=== PATIENT | female | born 1945 | race Caucasian/White ===

== ENCOUNTER 2016-12-10 18:27 | Observation (INO) | payer MEDICARE, OTHER ==
[2016-12-10] MEDS ORDERED: Sodium Chloride 0.9% 1,000 ML IV ONE (18:43)
[2016-12-10] MEDS ORDERED: Sodium Chloride 0.9% 10 ML Syringe FLUSH PRN (18:43)
[2016-12-10] MEDS ORDERED: methylPREDNISolone Sodium Succinate 125 MG/2 ML SDV IVPUSH ONE (19:50)
--- NOTE | 2016-12-10 20:15 | EDM.PDOC ---
ED HPI GENERAL MEDICAL PROBLEM - General Chief Complaint: Back Pain or Injury Stated Complaint: whole body spasms Time Seen by Provider: 12/10/16 18:40 Source of Information: Reports: Patient, Family History Limitations: Reports: No Limitations - History of Present Illness INITIAL COMMENTS - FREE TEXT/NARRATIVE: Patient presents with complaints of spasms to her back. She has chronic back problems and has had 9 total surgeries. She states that she does have this happen periodically. Pain and spasms started this morning. Rates pain an 8-9/ 10. States the pain is like a squeezing on her entire body. Medical history includes HTN, stage 3 CKD, hyperlipidemia, hypercholesterolemia, polymyalgia rheumatica, RA, osteopenia. History of bilateral knee replacements, total hysterectomy. Denies chest pain, SOB, does endorse some constipation, no blood in urine or stools. No smoking, drinking, or illegal drug use. Onset: Today, Sudden Duration: Chronic, Getting Worse Location: Reports: Generalized Severity: Moderate Worsens with: Reports: Movement Associated Symptoms: Reports: No Other Symptoms Generalized Pain Score (Numeric/FACES): 9 - Related Data Allergies Allergy/AdvReac Type Severity Reaction Status Date / Time No Known Drug Allergies Allergy Other Verified 12/10/16 18:42 atorvastatin calcium AdvReac Muscle Verified 12/10/16 18:42 [From Lipitor] Aches pregabalin [From Lyrica] AdvReac Diaphoresis Verified 12/10/16 18:42 Home Meds: Home Meds Aspirin [Halfprin] 81 mg PO DAILY 09/11/13 [History] Calcium Carb & Citrate/Vit D3 [Calcium + D3 ER Tablet] 1 each PO BID 09/11/13 [ History] DULoxetine [Cymbalta] 90 mg PO DAILY 09/11/13 [History] Multivitamin [Multi-Vitamin Daily] 1 each PO DAILY 09/11/13 [History] Oxybutynin Chloride [Ditropan Xl] 5 mg PO WITHLUNCH 09/11/13 [History] Ubidecarenone [Co Q-10] 50 mg PO TID 09/11/13 [History] Vitamin E 400 unit PO DAILY 09/11/13 [History] Zolpidem [Ambien] 5 mg PO BEDTIME PRN 05/29/14 [History] fentaNYL [Fentanyl] 75 mcg TD Q48H 05/29/14 [History] Metoprolol Succinate [Toprol XL] 25 mg PO DAILY #30 tab.er 06/16/14 [Rx] Cholecalciferol (Vitamin D3) [Vitamin D3] 400 units PO BID 01/14/15 [History] Furosemide 20 mg PO DAILY PRN 01/14/15 [History] Hydrocodone/Acetaminophen [Hydrocodon-Acetaminophn 10-325] 1 tab PO Q4H PRN 10/21 [History] Hydroxychloroquine Sulfate [Plaquenil] 200 mg PO BID 01/14/15 [History] predniSONE [Shakila] 4 mg PO DAILY 01/14/15 [History] Docusate Sodium [Colace] 100 mg PO BID 01/18/15 [History] LORazepam [Ativan] 1 mg PO Q2H PRN 01/18/15 [History] Gabapentin [Neurontin] 100 mg PO DAILY@1200 cap 01/25/15 [Rx] Gabapentin [Neurontin] 200 mg PO BID cap 01/25/15 [Rx] Past Medical History Genitourinary History: Reports: Renal Disease Other Genitourinary History: stage 3 kidney disease Musculoskeletal History: Reports: Arthritis, Back Pain, Chronic - Past Surgical History Female Surgical History: Reports: Hysterectomy Other Musculoskeletal Surgeries/Procedures:: back/neck surgeries Social & Family History - Tobacco Use Smoking Status *Q: Former Smoker Years of Tobacco use: 10 Used Tobacco, but Quit: Yes Month Tobacco Last Used: unknown Second Hand Smoke Exposure: No - Alcohol Use Days Per Week of Alcohol Use: 0 - Recreational Drug Use Recreational Drug Use: No ED ROS GENERAL - Review of Systems Review Of Systems: See Below Constitutional: Reports: No Symptoms HEENT: Reports: No Symptoms Respiratory: Reports: No Symptoms Cardiovascular: Reports: No Symptoms Endocrine: Reports: No Symptoms GI/Abdominal: Reports: No Symptoms : Reports: No Symptoms Musculoskeletal: Reports: Muscle Pain (generalized spasms) Skin: Reports: No Symptoms Neurological: Reports: No Symptoms Psychiatric: Reports: No Symptoms Hematologic/Lymphatic: Reports: No Symptoms Immunologic: Reports: No Symptoms ED EXAM,LOWER BACK PAIN/INJURY - Physical Exam Exam: See Below Exam Limited By: No Limitations General Appearance: Alert, WD/WN, Mild Distress Eye Exam: Bilateral Eye: EOMI, PERRL Throat/Mouth: Normal Inspection Head: Atraumatic, Normocephalic Neck: Normal Inspection Respiratory/Chest: No Respiratory Distress, Lungs Clear, Normal Breath Sounds, No Accessory Muscle Use, Chest Non-Tender Cardiovascular: Normal Peripheral Pulses, Regular Rate, Rhythm, No Murmur GI/Abdominal: Normal Bowel Sounds, Soft, Non-Tender Back Exam: Decreased Range of Motion, Muscle Spasm Extremities: Normal Inspection, Non-Tender, Normal Capillary Refill, Pedal Edema , Limited Range of Motion Neurological: Alert, Normal Mood/Affect, Normal Dorsiflexion, CN II-XII Intact, Normal Plantar Flexion, Normal Gait, Normal Reflexes, No Motor/Sensory Deficits , Oriented x 3 Psychiatric: Normal Affect, Normal Mood Skin Exam: Warm, Dry, Intact Lymphatic: No Adenopathy Course - Vital Signs Last Recorded V/S: Last Vital Signs Temp 36.0 C 12/10/16 18:27 Pulse 68 12/10/16 18:27 Resp 20 12/10/16 18:27 BP 137/65 12/10/16 18:27 Pulse Ox - Orders/Labs/Meds Orders: Active Orders 24 hr Category Date Time Status Lumbar Spine wo Cont [CT] Stat Exams 12/10/16 18:41 Ordered CULTURE URINE [RM] Stat Lab 12/10/16 19:38 Uncollected Sodium Chloride 0.9% [Saline Flush] Med 12/10/16 18:43 Ordered 10 ml FLUSH ASDIRECTED PRN Saline Lock Insert [OM.PC] Routine Oth 12/10/16 18:43 Ordered Medication Orders Sodium Chloride (Saline Flush) 10 ml FLUSH ASDIRECTED PRN PRN Reason: Keep Vein Open Labs: Laboratory Tests 12/10/16 12/10/16 12/10/16 Range/Units 18:56 18:56 19:29 WBC 7.0 (4.0-10.0) x10^3/uL RBC 3.40 L (4.00-5.50) x10^6/uL Hgb 10.6 L (12.0-16.0) g/dL Hct 32.3 L (33.0-47.0) % MCV 95.0 H D (78.0-93.0) fL MCH 31.2 (26.0-32.0) pg MCHC 32.8 (32.0-36.0) g/dL RDW Coeff of Isaura 13.6 (10.0-15.0) % Plt Count 155 (130-400) x10^3/uL Neut % (Auto) 64.7 (50.0-80.0) % Lymph % (Auto) 22.2 L (25.0-50.0) % Leake % (Auto) 11.0 (2.0-11.0) % Eos % (Auto) 1.8 (0.0-4.0) % Baso % (Auto) 0.3 (0.2-1.2) % Sodium 141 (136-145) mmol/L Potassium 4.2 (3.5-5.1) mmol/L Chloride 103 (98-107) mmol/L Carbon Dioxide 25 (21-32) mmol/L BUN 41 H (7-18) mg/dL Creatinine 2.3 H (0.55-1.02) mg/dL Est Cr Clr Drug Dosing 19.93 mL/min Estimated GFR (MDRD) 21 Glucose 94 (74-106) mg/dL Calcium 8.9 (8.5-10.1) mg/dL Corrected Calcium 9.22 (8.5-10.1) mg/dL Magnesium 2.2 (1.8-2.4) mg/dL Total Bilirubin 0.4 (0.2-1.0) mg/dL AST 25 (15-37) U/L ALT 32 (14-59) U/L Alkaline Phosphatase 71 (46-116) U/L NT-Pro-B Natriuret Pep 225 H (<=125) pg/mL Total Protein 7.7 (6.4-8.2) g/dL Albumin 3.6 (3.4-5.0) g/dL Globulin 4.1 Albumin/Globulin Ratio 0.88 Urine Color Yellow (YELLOW) Urine Appearance Turbid H (CLEAR) Urine pH 5.5 (5.0-8.0) Ur Specific [place] 1.020 Urine Protein 30 H (NEGATIVE) mg/dL Urine Glucose (UA) Negative (NEGATIVE) mg/dL Urine Ketones Negative (NEGATIVE) mg/dL Urine Occult Blood Trace-intact H (NEGATIVE) Urine Nitrite Positive H (NEGATIVE) Urine Bilirubin Negative (NEGATIVE) Urine Urobilinogen 0.2 (0.2) EU/dL Ur Leukocyte Esterase Moderate H (NEGATIVE) Urine RBC 0-5 (NOT SEEN) /HPF Urine WBC >100 H (NOT SEEN) /HPF Ur Squamous Epith Cells Moderate H (NEGATIVE) /HPF Ur Renal Epithelial Cell Rare H (NEGATIVE) /HPF Urine Bacteria Many H (NEGATIVE) /HPF WBC Casts Rare H (NEGATIVE) /HPF Urine Mucus Rare H (NEGATIVE) /LPF Meds: Medications Generic Name Dose Route Start Last Admin Trade Name Hemalatha PRN Reason Stop Dose Admin Sodium Chloride 10 ml 12/10/16 18:43 Saline Flush FLUSH ASDIRECTED PRN Keep Vein Open Discontinued Medications Generic Name Dose Route Start Last Admin Trade Name Hemalatha PRN Reason Stop Dose Admin Diazepam 5 mg 12/10/16 18:43 12/10/16 19:38 Valium IVPUSH 12/10/16 18:44 5 mg ONETIME ONE Administration Sodium Chloride 1,000 mls @ 999 mls/hr 12/10/16 18:43 12/10/16 19:34 Normal Saline IV 12/10/16 19:43 999 mls/hr ONETIME ONE Administration - Re-Assessments/Exams Free Text/Narrative Re-Assessment/Exam: 12/10/16 21:28 examination of labs and diagnostics does show a loosening of her hardware in the back, urine sample is positive for blood, nitrates, leukocytes, mucous, wbc' s Departure - Departure Time of Disposition: 20:35 Disposition: Refer to Observation Condition: Good Clinical Impression: Pyelonephritis, Chronic back pain - Discharge Information - My Orders Last 24 Hours: My Active Orders 12/10/16 18:41 Lumbar Spine wo Cont [CT] Stat 12/10/16 18:43 Sodium Chloride 0.9% [Saline Flush] 10 ml FLUSH ASDIRECTED PRN Saline Lock Insert [OM.PC] Routine 12/10/16 19:38 CULTURE URINE [RM] Stat - Assessment/Plan Last 24 Hours: My Active Orders 12/10/16 18:41 Lumbar Spine wo Cont [CT] Stat 12/10/16 18:43 Sodium Chloride 0.9% [Saline Flush] 10 ml FLUSH ASDIRECTED PRN Saline Lock Insert [OM.PC] Routine 12/10/16 19:38 CULTURE URINE [RM] Stat
[2016-12-10] MEDS ORDERED: oxyCODONE 5 MG Tab PO PRN (21:35)
[2016-12-10] MEDS ORDERED: Magnesium Hydroxide 400 MG/5 ML Susp 30 ML Cup PO PRN (21:35)
[2016-12-10] MEDS ORDERED: Acetaminophen 325 MG Tab PO PRN (21:35)
[2016-12-10] MEDS ORDERED: Polyethylene Glycol 3350 Powder 17 GM Packet PO PRN (21:35)
[2016-12-10] MEDS ORDERED: Morphine 2 MG/ML Syringe IVPUSH PRN (21:35)
[2016-12-10] MEDS: Sodium Chloride 0.9% 1,000 ML IV SCH (22:00)
[2016-12-10] MEDS ORDERED: Baclofen 10 MG Tab PO SCH (22:00)
[2016-12-10] MEDS ORDERED: cefTRIAXone 1 GM Vial IVPUSH SCH (22:00)
[2016-12-10] MEDS ORDERED: Furosemide 20 MG Tab PO PRN (22:27)
[2016-12-10] MEDS ORDERED: Non-Formulary Medication 1 Each (Nystatin [Nystatin] 1 EACH) TOP PRN (22:27)
[2016-12-10] MEDS ORDERED: Acetaminophen/HYDROcodone 325-10 MG Tab PO PRN (22:27)
[2016-12-10] MEDS ORDERED: Non-Formulary Medication 1 Each (Ubidecarenone [Co Q-10] 50 MG) PO SCH (22:30)
[2016-12-10] MEDS ORDERED: Miconazole 2% Top Powder 45 GM Container TOP PRN (22:59)
[2016-12-11] MEDS: Diazepam 5 MG Tab PO SCH ×2 (07:56→11:33)
[2016-12-11] MEDS ORDERED: DULoxetine 60 MG Cap PO SCH (08:00)
[2016-12-11] MEDS ORDERED: Gabapentin 100 MG Cap PO SCH ×3 (08:00→20:00)
[2016-12-11] MEDS ORDERED: Multivitamins with Iron/Calcium/Folic Acid/Minerals Tab PO SCH (08:00)
[2016-12-11] MEDS ORDERED: methylPREDNISolone Sodium Succinate 125 MG/2 ML SDV IVPUSH SCH (08:00)
[2016-12-11] MEDS ORDERED: DULoxetine 30 MG Cap PO SCH (08:00)
[2016-12-11] MEDS ORDERED: fentaNYL 75 MCG/HR Transdermal Patch TRDERM SCH ×2 (08:00→12:00)
[2016-12-11] MEDS ORDERED: Aspirin 81 MG Tab.EC PO SCH (08:00)
[2016-12-11] MEDS ORDERED: Metoprolol Succinate 25 MG Tab.ER PO SCH (08:00)
[2016-12-11] MEDS ORDERED: Hydroxychloroquine 200 MG Tab PO SCH (08:00)
[2016-12-11] MEDS ORDERED: Cholecalciferol (Vitamin D3) 400 Unit Tab PO SCH (08:00)
[2016-12-11] MEDS ORDERED: Vitamin E (dl-alpha-tocopherol acetate) 400 Unit Cap PO SCH (08:00)
[2016-12-11] MEDS ORDERED: Baclofen 10 MG Tab PO SCH ×3 (08:00→20:00)
[2016-12-11] MEDS: Sodium Chloride 0.9% 1,000 ML IV SCH (08:00)
[2016-12-11] MEDS ORDERED: FLU Vacc TS 2017-18 (65yr UP)/PF 180 MCG/0.5 ML Syringe IM ONE (08:15)
[2016-12-11] MEDS ORDERED: Enoxaparin 30 MG/0.3 ML Syringe SUBCUT SCH (12:00)
[2016-12-11] MEDS ORDERED: Oxybutynin 5 MG Tab.ER PO SCH (12:00)
[2016-12-11] MEDS ORDERED: Calcium Carbonate/Vitamin D3 1250 MG-200 Unit Tab PO SCH (12:00)
--- NOTE | 2016-12-11 12:03 | PCM.DCSUM1 ---
Discharge Summary - Hospital Course HPI Initial Comments: Patient came in last night with severe spasms generalized throughout her body. She has a long-standing history of chronic back problems she's had multiple surgeries. She states she's had a total of 9 back surgeries. She also states that recent CT evaluations showed that some of the hardware was loosening within the back but they were unable or unwilling to do any repairs because she' s got severe demineralization to the spine. Upon my seeing her in the emergency room I did give her IV pain medications, IV corticosteroid, and did do a CT of her back. I also did give her a 5 mg dose of IV Valium which was very effective in eliminating her spasms as well as the pain. Prior to the Valium being administered she rated her pain 8-9 out of 10, she was admitted last night for pain control. after the Valium was administered she rated her pain at a 2. I did admit her last night for IV pain control and for IV antibiotic treatment for pyelonephritis. - Discharge Data Discharge Date: 12/11/16 Discharge Disposition: Home, Self-Care 01 Condition: Good - Discharge Diagnosis/Problem(s) (1) Spasm of back muscles SNOMED Code(s): 166825884 ICD Code: M62.830 - MUSCLE SPASM OF BACK Status: Acute Priority: Medium Current Visit: Yes - Patient Summary/Data Consults: Consultations 12/10/16 21:35 OT Evaluation and Treatment [CONS] Routine PT Evaluation and Treatment [CONS] Routine - Patient Instructions Diet: Usual Diet as Tolerated Notify Provider of: Fever, Increased Pain, Nausea and/or Vomiting Other/Special Instructions: Please follow-up with your primary care provider. A urine culture has been obtained we will call you with any changes that may need to be made in your antibiotic regimen. I recommend that you take the Valium once daily as needed only for any muscle spasms that you may suffer. You need to stay well-hydrated, and you do need to move his much as you're able to tolerate. This will help reduce the amount of back stiffening and back spasms that you do have. Sitting or laying down for long periods of time will only serve to stiffen and tightened the muscles of your back. - Discharge Plan Home Medications: Home Meds Aspirin [Halfprin] 81 mg PO DAILY 09/11/13 [History] Calcium Carb & Citrate/Vit D3 [Calcium + D3 ER Tablet] 1 each PO BID 09/11/13 [ History] DULoxetine [Cymbalta] 1 tab PO DAILY 09/11/13 [History] Multivitamin [Multi-Vitamin Daily] 1 each PO DAILY 09/11/13 [History] Oxybutynin Chloride [Ditropan Xl] 5 mg PO WITHLUNCH 09/11/13 [History] Ubidecarenone [Co Q-10] 50 mg PO ASDIRECTED 09/11/13 [History] Vitamin E 400 unit PO DAILY 09/11/13 [History] fentaNYL [Fentanyl] 75 mcg TD Q48H 05/29/14 [History] Metoprolol Succinate [Toprol XL] 25 mg PO DAILY #30 tab.er 06/16/14 [Rx] Cholecalciferol (Vitamin D3) [Vitamin D3] 400 units PO BID 01/14/15 [History] Furosemide 20 mg PO DAILY PRN 01/14/15 [History] Hydrocodone/Acetaminophen [Hydrocodon-Acetaminophn 10-325] 1 tab PO Q4H PRN 10/21 [History] Hydroxychloroquine Sulfate [Plaquenil] 200 mg PO BID 01/14/15 [History] predniSONE [Shakila] 4 mg PO DAILY 01/14/15 [History] Gabapentin [Neurontin] 100 mg PO DAILY@1200 cap 01/25/15 [Rx] Acetaminophen 1 - 2 tab PO Q3H PRN 12/10/16 [History] Alendronate Sodium [Fosamax] 70 mg PO WEEKLY 12/10/16 [History] Baclofen [Baclofen] 1 tab PO ASDIRECTED 12/10/16 [History] Baclofen [Baclofen] 1 tab PO WITHBREAKFAST 12/10/16 [History] Baclofen [Baclofen] 1.5 tab PO BEDTIME 12/10/16 [History] DULoxetine HCl [Duloxetine HCl] 1 tab PO DAILY 12/10/16 [History] Gabapentin [Neurontin] 200 mg PO BEDTIME 12/10/16 [History] Gabapentin [Neurontin] 200 mg PO QAM 12/10/16 [History] Nystatin 1 each TOP BID PRN 12/10/16 [History] Forms: ED Department Discharge Referrals: Crystal Parks MD [Primary Care Provider] - - General Info Date of Service: 12/11/16 Admission Dx/Problem (Free Text: pyelonephritis acute back spasms pain management Functional Status: Reports: Pain Controlled, Tolerating Diet, Ambulating, Urinating, Other (having BM's, constipation resolved) - Review of Systems General: Reports: No Symptoms HEENT: Reports: No Symptoms Pulmonary: Reports: No Symptoms Cardiovascular: Reports: No Symptoms Gastrointestinal: Reports: No Symptoms Genitourinary: Reports: No Symptoms Musculoskeletal: Reports: Neck Pain, Back Pain Skin: Reports: No Symptoms Neurological: Reports: No Symptoms Psychiatric: Reports: No Symptoms - Patient Data Vitals - Most Recent: Last Vital Signs Temp 36.6 C 12/11/16 10:00 Pulse 65 12/11/16 10:00 Resp 20 12/11/16 10:00 BP 124/56 L 12/11/16 10:00 Pulse Ox 95 12/11/16 10:00 Weight - Most Recent: 218.8 kg I&O - Last 24 hours: Intake & Output 12/10/16 12/11/16 12/11/16 22:59 06:59 14:59 Intake Total 480 688 320 Output Total 150 300 Balance 480 538 20 Med Orders - Current: Current Medications Acetaminophen (Tylenol) 650 mg PO Q4H PRN PRN Reason: Pain (Mild 1-3)/fever Last Admin: 12/11/16 05:02 Dose: 650 mg Hydrocodone Bitart/Acetaminophen ([place] 325-10 Mg) 1 tab PO Q4H PRN PRN Reason: Pain (moderate 4-6) Aspirin (Halfprin) 81 mg PO DAILY [facility] Last Admin: 12/11/16 07:55 Dose: 81 mg Baclofen (Lioresal) 10 mg PO WITHBREAKFAST [facility] Last Admin: 12/11/16 07:56 Dose: 10 mg Baclofen (Lioresal) 15 mg PO BEDTIME CARLA Baclofen (Lioresal) 10 mg PO 12 [facility] Last Admin: 12/11/16 11:47 Dose: 10 mg Calcium Carbonate (Calcium Carbonate/Vitamin D 1250 Mg-200 Unit) 1 tab PO BID@ 1200,2100 [facility] Last Admin: 12/11/16 11:33 Dose: 1 tab Ceftriaxone Sodium (Rocephin) 1 gm IVPUSH DAILY@2200 [facility] Last Admin: 12/10/16 22:35 Dose: 1 gm Cholecalciferol (Vitamin D3) 400 units PO BID [facility] Last Admin: 12/11/16 07:55 Dose: 400 units Diazepam (Valium.) 5 mg PO TID [facility] Last Admin: 12/11/16 11:33 Dose: 5 mg Duloxetine HCl (Cymbalta) 30 mg PO DAILY [facility] Last Admin: 12/11/16 07:55 Dose: 30 mg Duloxetine HCl (Cymbalta) 60 mg PO DAILY [facility] Last Admin: 12/11/16 07:56 Dose: 60 mg Enoxaparin Sodium (Lovenox) 30 mg SUBCUT DAILY@1200 [facility] Last Admin: 12/11/16 11:32 Dose: 30 mg Fentanyl (Duragesic) 75 mcg TRDERM Q48H [facility] Last Admin: 12/11/16 11:30 Dose: 75 mcg Furosemide (Lasix) 20 mg PO DAILY PRN PRN Reason: Edema Gabapentin (Neurontin) 100 mg PO DAILY@1200 [facility] Last Admin: 12/11/16 11:33 Dose: 100 mg Gabapentin (Neurontin) 200 mg PO QAM [facility] Last Admin: 12/11/16 07:57 Dose: 200 mg Gabapentin (Neurontin) 200 mg PO BEDTIME [facility] Hydroxychloroquine Sulfate (Plaquenil) 200 mg PO BIDMEALS@0800,1700 [facility] Last Admin: 12/11/16 07:55 Dose: 200 mg Sodium Chloride (Normal Saline) 1,000 mls @ 100 mls/hr IV ASDIRECTED [facility] Last Admin: 12/11/16 08:00 Dose: 100 mls/hr Magnesium Hydroxide (Milk Of Magnesia) 30 ml PO Q12H PRN PRN Reason: Constipation Methylprednisolone Sodium Succinate (Solu-Medrol) 125 mg IVPUSH Q12H [facility] Last Admin: 12/11/16 07:55 Dose: 125 mg Metoprolol Succinate (Toprol Xl) 25 mg PO DAILY [facility] Last Admin: 12/11/16 07:56 Dose: 25 mg Miconazole (Desenex 2%) 0 gm TOP BID PRN PRN Reason: SKIN Morphine Sulfate (Morphine) 2 mg IVPUSH Q2H PRN PRN Reason: Pain (severe 7-10) Multivitamins/Minerals (Thera M Plus) 1 tab PO DAILY [facility] Last Admin: 12/11/16 07:56 Dose: 1 tab Non-Formulary Medication (Ubidecarenone [Co Q-10]) 50 mg PO ASDIRECTED [facility] Oxybutynin Chloride (Oxybutynin Er) 5 mg PO WITHLUNCH [facility] Last Admin: 12/11/16 11:33 Dose: 5 mg Oxycodone HCl (Oxycodone) 5 mg PO Q4H PRN PRN Reason: Pain (moderate 4-6) Polyethylene Glycol (Miralax) 17 gm PO DAILY PRN PRN Reason: Constipation Last Admin: 12/10/16 22:35 Dose: 17 gm Senna/Docusate Sodium (Senna Plus) 1 tab PO BID PRN PRN Reason: Constipation Last Admin: 12/10/16 22:35 Dose: 1 tab Sodium Chloride (Saline Flush) 10 ml FLUSH ASDIRECTED PRN PRN Reason: Keep Vein Open Vitamin E (Vitamin E) 400 units PO DAILY [facility] Last Admin: 12/11/16 07:55 Dose: 400 units Discontinued Medications Baclofen (Lioresal) mg PO ASDIRECTED [facility] Diazepam (Valium) 5 mg IVPUSH ONETIME ONE Stop: 12/10/16 18:44 Last Admin: 12/10/16 19:38 Dose: 5 mg Fentanyl (Duragesic) 75 mcg TRDERM Q48H [facility] Last Admin: 12/11/16 08:20 Dose: Not Given Sodium Chloride (Normal Saline) 1,000 mls @ 999 mls/hr IV ONETIME ONE Stop: 12/10/16 19:43 Last Admin: 12/10/16 19:34 Dose: 999 mls/hr Methylprednisolone Sodium Succinate (Solu-Medrol) 125 mg IVPUSH ONETIME ONE Stop: 12/10/16 19:51 Last Admin: 12/10/16 19:59 Dose: 125 mg - Exam General: Reports: Alert, Oriented, Cooperative, No Acute Distress HEENT: Reports: Pupils Equal, Pupils Reactive, EOMI, Mucous Membr. Moist/[place] Neck: Reports: Supple Lungs: Reports: Clear to Auscultation, Normal Respiratory Effort Cardiovascular: Reports: Regular Rate, Regular Rhythm, Murmurs GI/Abdominal Exam: Normal Bowel Sounds, Soft, Non-Tender, No Organomegaly, No Distention Back Exam: Reports: Decreased Range of Motion Extremities: Normal Inspection, Normal Range of Motion, Non-Tender, No Pedal Edema, Normal Capillary Refill Skin: Reports: Warm, Dry, Intact Neurological: Reports: No New Focal Deficit Psy/Mental Status: Reports: Alert, Normal Affect, Normal Mood *Q Meaningful Use (DIS) - VTE *Q VTE Criteria *Q: - Stroke *Q Stroke Criteria *Q: - AMI *Q AMI Criteria *Q:
[2016-12-11 14:31] VITALS: BP 120/65
== END 2016-12-11 14:50 | disposition home or self-care (01) ==
LOC: VM.ED 18:27 → VM.MS 20:16
PROVIDERS: ADMIT Nurse Practitioner Family; ATTEND Nurse Practitioner Family
DX: M62.830 Muscle spasm of back (principal); Z79.52 Long term (current) use of systemic steroids; Z79.82 Long term (current) use of aspirin; Z79.899 Other long term (current) drug therapy; Z23 Encounter for immunization
CPT/HCPCS: 36415; 72131; 80053; 81001; 83735; 83880; 85025; 87086; 87088; 87186; 96361; 96372; 96374; 96375; 96376; 99284; A9270; G0008; G0378; J0696; J1650; J2930; J3360; J7030; 90662; 99217; 99220

== ENCOUNTER 2018-07-21 20:12 | Inpatient (IN) | payer MEDICARE, OTHER ==
[2018-07-21] MEDS ORDERED: Ondansetron 4 MG/2 ML SDV IVPUSH ONE (20:46)
[2018-07-21] MEDS ORDERED: Lactated Ringers 1,000 ML IV SCH (21:00)
[2018-07-21] MEDS ORDERED: Iopamidol 612 MG/ML 100 ML Bottle IVPUSH ONE (21:05)
--- NOTE | 2018-07-21 21:12 | EDM.PDOC ---
ED HPI GENERAL MEDICAL PROBLEM - General Chief Complaint: Gastrointestinal Problem Stated Complaint: STOMACH PAIN Time Seen by Provider: 07/21/18 20:38 Source of Information: Reports: Patient, Family History Limitations: Reports: No Limitations - History of Present Illness INITIAL COMMENTS - FREE TEXT/NARRATIVE: Patient comes in with reports of nausea, vomiting after taking a colon cleanse last night. She woke this AM to have a BM and has had 3 total today. She became nauseated later this afternoon. 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 Denies fever, chills, sob, chest pain. Also denies any headaches, blurry vision, neurologic complaints. She states her stomach feels full of pressure, is bloated, and tight. Initial vital signs do indicate hypertension. Onset: Today, Sudden Duration: Intermittent Location: Reports: Abdomen Associated Symptoms: Reports: Nausea/Vomiting - Related Data Allergies Allergy/AdvReac Type Severity Reaction Status Date / Time atorvastatin calcium AdvReac Muscle Verified 07/21/18 21:04 [From Lipitor] Aches pregabalin [From Lyrica] AdvReac Swelling Verified 07/21/18 21:04 Home Meds: Home Meds Aspirin [Halfprin] 81 mg PO DAILY 09/11/13 [History] Calcium Carb & Citrate/Vit D3 [Calcium + D3 ER Tablet] 1 each PO BID 09/11/13 [ History] DULoxetine [Cymbalta] 1 tab PO DAILY 09/11/13 [History] Multivitamin [Multi-Vitamin Daily] 1 each PO DAILY 09/11/13 [History] Oxybutynin Chloride [Ditropan Xl] 5 mg PO WITHLUNCH 09/11/13 [History] Ubidecarenone [Co Q-10] 50 mg PO ASDIRECTED 09/11/13 [History] Vitamin E 400 unit PO DAILY 09/11/13 [History] fentaNYL [Fentanyl] 75 mcg TD Q48H 05/29/14 [History] Metoprolol Succinate [Toprol XL] 25 mg PO DAILY #30 tab.er 06/16/14 [Rx] Cholecalciferol (Vitamin D3) [Vitamin D3] 400 units PO BID 01/14/15 [History] Furosemide 20 mg PO DAILY PRN 01/14/15 [History] Hydrocodone/Acetaminophen [Hydrocodon-Acetaminophn 10-325] 1 tab PO Q4H PRN 10/21 [History] Hydroxychloroquine Sulfate [Plaquenil] 200 mg PO BID 01/14/15 [History] predniSONE [Shakila] 4 mg PO DAILY 01/14/15 [History] Gabapentin [Neurontin] 100 mg PO DAILY@1200 cap 01/25/15 [Rx] Acetaminophen 1 - 2 tab PO Q3H PRN 12/10/16 [History] Alendronate Sodium [Fosamax] 70 mg PO WEEKLY 12/10/16 [History] Baclofen 1 tab PO ASDIRECTED 12/10/16 [History] Baclofen 1 tab PO WITHBREAKFAST 12/10/16 [History] Baclofen 1.5 tab PO BEDTIME 12/10/16 [History] DULoxetine HCl [Duloxetine HCl] 1 tab PO DAILY 12/10/16 [History] Gabapentin [Neurontin] 200 mg PO BEDTIME 12/10/16 [History] Gabapentin [Neurontin] 200 mg PO QAM 12/10/16 [History] Nystatin 1 each TOP BID PRN 12/10/16 [History] Diazepam [Valium] 5 mg PO DAILY #20 tablet 12/11/16 [Rx] Polyethylene Glycol 3350 [MiraLAX] 17 gm PO DAILY PRN packet 12/11/16 [Rx] Past Medical History Genitourinary History: Reports: Renal Disease Other Genitourinary History: stage 3 kidney disease Musculoskeletal History: Reports: Arthritis, Back Pain, Chronic - Past Surgical History Female Surgical History: Reports: Hysterectomy Other Musculoskeletal Surgeries/Procedures:: back/neck surgeries Social & Family History - Caffeine Use Caffeine Use: Reports: Other Caffeine Use Comment: Very rarely ED ROS GENERAL - Review of Systems Review Of Systems: See Below Constitutional: Reports: No Symptoms HEENT: Reports: No Symptoms Respiratory: Reports: No Symptoms Cardiovascular: Reports: No Symptoms Endocrine: Reports: No Symptoms GI/Abdominal: Reports: Abdominal Pain, Hematemesis, Nausea, Vomiting : Reports: No Symptoms Musculoskeletal: Reports: No Symptoms Skin: Reports: No Symptoms Neurological: Reports: No Symptoms Psychiatric: Reports: No Symptoms Hematologic/Lymphatic: Reports: No Symptoms Immunologic: Reports: No Symptoms ED EXAM, GI/ABD - Physical Exam Exam: See Below Exam Limited By: No Limitations General Appearance: Alert, WD/WN, Mild Distress Eyes: Bilateral: Normal Appearance, EOMI Ears: Normal External Exam, Normal Canal, Hearing Grossly Normal, Normal TMs Nose: Normal Inspection, Normal Mucosa, No Blood Throat/Mouth: Normal Inspection, Normal Lips, Normal Teeth, Normal Gums, Normal Oropharynx, Normal Voice, No Airway Compromise Head: Atraumatic, Normocephalic Neck: Normal Inspection, Supple, Non-Tender, Full Range of Motion Respiratory/Chest: No Respiratory Distress, Lungs Clear, Normal Breath Sounds, No Accessory Muscle Use, Chest Non-Tender Cardiovascular: Normal Peripheral Pulses, Regular Rate, Rhythm, No Gallop, No Rub, Systolic Murmur GI/Abdominal Exam: No Organomegaly, No Abnormal Bruit, No Mass, Pelvis Stable, Distended, Rigid, Tender, Abnormal Bowel Sounds (hypoactive x 4 quads) Back Exam: Normal Inspection, Full Range of Motion, NT Extremities: Normal Inspection, Normal Range of Motion, Non-Tender, Normal Capillary Refill, No Pedal Edema Neurological: Alert, Oriented, CN II-XII Intact, Normal Cognition, Normal Gait, Normal Reflexes, No Motor/Sensory Deficits Psychiatric: Normal Affect, Normal Mood Skin Exam: Warm, Dry, Intact, Normal Color, No Rash Lymphatic: No Adenopathy Course - Orders/Labs/Meds Orders: Active Orders 24 hr Category Date Time Status Abdomen Pelvis w Cont [CT] Stat Exams 07/21/18 20:46 Ordered AMYLASE [CHEM] Stat Lab 07/21/18 20:46 Ordered CBC WITH AUTO DIFF [HEME] Stat Lab 07/21/18 20:46 Ordered COMPREHENSIVE METABOLIC PN,CMP [CHEM] Stat Lab 07/21/18 20:46 Ordered PRO B-TYPE NATRIUR PEPT,BNPPRO [CHEM] Stat Lab 07/21/18 20:46 Ordered Lactated Ringers [Ringers, Lactated] 1,000 ml Med 07/21/18 21:00 Ordered IV ASDIRECTED Sodium Chloride 0.9% [Saline Flush] Med 07/21/18 20:46 Ordered 10 ml FLUSH ASDIRECTED PRN Saline Lock Insert [OM.PC] Routine Oth 07/21/18 20:46 Ordered Medication Orders Lactated Ringer's (Ringers, Lactated) 1,000 mls @ 999 mls/hr IV ASDIRECTED CARLA Sodium Chloride (Saline Flush) 10 ml FLUSH ASDIRECTED PRN PRN Reason: Keep Vein Open Meds: Medications Generic Name Dose Route Start Last Admin Trade Name Hemalatha PRN Reason Stop Dose Admin Lactated Ringer's 1,000 mls @ 999 mls/hr 07/21/18 21:00 Ringers, Lactated IV ASDIRECTED CARLA Sodium Chloride 10 ml 07/21/18 20:46 Saline Flush FLUSH ASDIRECTED PRN Keep Vein Open Discontinued Medications Generic Name Dose Route Start Last Admin Trade Name Hemalatha PRN Reason Stop Dose Admin Ondansetron HCl 4 mg 07/21/18 20:46 Zofran IVPUSH 07/21/18 20:47 ONETIME ONE - Radiology Interpretation Free Text/Narrative:: CT of abdomen shows SBO. Appearance of fluid in bowel. Await radiologist confirmation. Pacs system is down due to inclement weather Departure - Departure Time of Disposition: 22:53 Disposition: Admitted As Inpatient 67 Clinical Impression: Small bowel obstruction - Discharge Information *PRESCRIPTION DRUG MONITORING PROGRAM REVIEWED*: Not Applicable *COPY OF PRESCRIPTION DRUG MONITORING REPORT IN PATIENT IVETT: Not Applicable Referrals: Crystal Parks MD [Primary Care Provider] - Forms: ED Department Discharge ED Communication - ED Communication Date/Time Date: 07/21/18 Time Called: 22:50 - Discussed Case With (1) Discussed Case With (1): Admitting Provider (Dr. Pina contacted regarding SBO. Orders to admit acute.) - Problem List & Annotations (1) Small bowel obstruction SNOMED Code(s): 095424356 Code(s): K56.609 - UNSP INTESTNL OBST, UNSP TO PARTIAL VERSUS COMPLETE OBST Status: Acute Priority: Medium Current Visit: Yes - Problem List Review Problem List Initiated/Reviewed/Updated: Yes - My Orders Last 24 Hours: My Active Orders 07/21/18 20:46 Abdomen Pelvis w Cont [CT] Stat AMYLASE [CHEM] Stat CBC WITH AUTO DIFF [HEME] Stat COMPREHENSIVE METABOLIC PN,CMP [CHEM] Stat PRO B-TYPE NATRIUR PEPT,BNPPRO [CHEM] Stat Sodium Chloride 0.9% [Saline Flush] 10 ml FLUSH ASDIRECTED PRN Saline Lock Insert [OM.PC] Routine 07/21/18 21:00 Lactated Ringers [Ringers, Lactated] 1,000 ml IV ASDIRECTED - Assessment/Plan Last 24 Hours: My Active Orders 07/21/18 20:46 Abdomen Pelvis w Cont [CT] Stat AMYLASE [CHEM] Stat CBC WITH AUTO DIFF [HEME] Stat COMPREHENSIVE METABOLIC PN,CMP [CHEM] Stat PRO B-TYPE NATRIUR PEPT,BNPPRO [CHEM] Stat Sodium Chloride 0.9% [Saline Flush] 10 ml FLUSH ASDIRECTED PRN Saline Lock Insert [OM.PC] Routine 07/21/18 21:00 Lactated Ringers [Ringers, Lactated] 1,000 ml IV ASDIRECTED Assessment:: small bowel obstruction Plan: admit to acute
[2018-07-21 21:38] LABS: CHLORIDE,CL 101 mmol/L (98-107); SODIUM,NA 141 mmol/L (136-145)
[2018-07-21] MEDS ORDERED: Ondansetron 4 MG/2 ML SDV IV PRN (23:31)
[2018-07-21] MEDS ORDERED: Furosemide 20 MG Tab PO PRN (23:35)
[2018-07-21] MEDS ORDERED: Metoclopramide 10 MG/2 ML SDV IVPUSH ONE (23:39)
[2018-07-22] MEDS: fentaNYL 50 MCG/HR Transdermal Patch TRDERM SCH (01:00)
[2018-07-22] MEDS: Acetaminophen/HYDROcodone 325-10 MG Tab PO PRN ×3 (03:15→19:49)
[2018-07-22 07:48] LABS: CHLORIDE,CL 103 mmol/L (98-107); SODIUM,NA 141 mmol/L (136-145)
--- NOTE | 2018-07-22 08:35 | CT ---
[id number] CT/CT Abdomen Pelvis W IV EXAM: CT Abdomen Pelvis W IV CLINICAL DATA: NAUSEA/VOMITING/HEMATEMESIS COMPARISON STUDY: None. FINDINGS: Small amount of perihepatic ascites. Free fluid also extends into the dependent recesses of the pelvis. Small bowel is largely fluid-filled, demonstrating mild dilation and distention. There is transition to decompressed small bowel involving the terminal ileum in the lower pelvis. Findings are most consistent with some degree of partial small bowel obstruction. No pneumoperitoneum or pneumatosis. Liver, adrenal glands, pancreas, spleen, and kidneys are unremarkable Uterus is been resected. Adnexal regions are unremarkable. Urinary bladder is unremarkable. No lymphadenopathy in the abdomen or pelvis. Extensive postsurgical change from decompression and fusion throughout the lumbar spine. IMPRESSION: Findings consistent with partial small bowel obstruction, transition point in the terminal ileum. Small amount of free fluid in the abdomen/pelvis. No drainable collection. No other evidence of ischemia. James Yi MD 07/22/18 0833 Thank you for allowing us to participate in the care of your patient.
--- NOTE | 2018-07-22 08:50 | PCM.HP ---
H&P History of Present Illness - General Date of Service: 07/22/18 Admit Problem/Dx: Admission Diagnosis/Problem Admission Diagnosis/Problem Small bowel obstruction Source of Information: Patient, Old Records - History of Present Illness Initial Comments - Free Text/Narative: Chief complaint: Nausea and vomiting. History of present illness: Patient was in the ER last evening with history of nausea and vomiting going on that day. Had taken colon cleanse earlier for chronic opioid-induced constipation. Not tolerating much for by mouth. [place] crampy and distended. Had a couple of stools earlier otherwise felt obstipated. Denies fever or bleeding. Past history of hysterectomy and back surgery, no recent surgeries. CT done showed partial SBO per verbal report from ER provider, I do not have a hard copy of this report. Currently patient' s feeling better. Nausea and vomiting have resolved, she does feel thirsty and maybe slightly hungry. Not passing a lot for flatus yet. Past medical history: Chronic back and neck pain status post surgery with chronic opioid use, chronic constipation secondary to such, aortic stenosis severe valve gradient of 50 mmHg, PMR, sleep apnea, hyperlipidemia, hypertension , glucose intolerance, intertrigo, CKD 3. Drug allergies Lipitor and Lyrica Nonsmoker Medications: Neurontin, fentanyl, prednisone, Plaquenil, Zofran, hydrocodone, vaginal estradiol, Lasix, Cymbalta, Toprol, prolia, baclofen, Criselda lax, aspirin , Tylenol, vitamins. Review of systems: Denies significant be denies chest pain denies palpitations denies dyspnea. Denies abdominal pain. Denies GI bleeding denies dysuria denies decreased urine output denies calf pain or swelling Physical exam: She was hypertensive in the ER normotensive currently, vital signs otherwise normal, alert oriented no acute distress, harsh systolic murmur right upper sternal border, lungs are clear, abdomen soft mostly non-tender and not grossly distended mild decreased bowel sounds, extremities warm well perfused without edema. Assessment and plan: #1. Partial small bowel obstruction. Seems to be improving we will start with clear liquids and advance diet as tolerated. Await formal CT report. White count has resolved. #2. Chronic narcotic therapy. Continue previous doses. Contributes to chronic constipation issues as well. #3. Macrocytic anemia. Delta drop of about 2 g, I suspect it's somewhat hemodilutional. Probably has anemia of chronic disease at baseline. We'll check basic vitamin levels. Hemoccult stool. Looks like she is due for colon screening. Recheck Hgb AM. #4. Chronic severe aortic stenosis 50 mmHg gradient. Also appears stable and asymptomatic. #5. Chronic kidney disease stage III, mild, also appears stable with creatinine at baseline. Abdomen Pain Score (Numeric/FACES): 8 - Related Data Allergies/Adverse Reactions: Allergies Allergy/AdvReac Type Severity Reaction Status Date / Time atorvastatin calcium AdvReac Muscle Verified 07/21/18 21:04 [From Lipitor] Aches pregabalin [From Lyrica] AdvReac Swelling Verified 07/21/18 21:04 Home Medications: Home Meds Aspirin [Halfprin] 81 mg PO DAILY 09/11/13 [History] Calcium Carb & Citrate/Vit D3 [Calcium + D3 ER Tablet] 1 each PO BID 09/11/13 [ History] DULoxetine [Cymbalta] 1 tab PO DAILY 09/11/13 [History] Multivitamin [Multi-Vitamin Daily] 1 each PO DAILY 09/11/13 [History] Oxybutynin Chloride [Ditropan Xl] 5 mg PO WITHLUNCH 09/11/13 [History] Ubidecarenone [Co Q-10] 50 mg PO DAILY 09/11/13 [History] Vitamin E 400 unit PO DAILY 09/11/13 [History] fentaNYL [Fentanyl] 50 mcg TD Q48H 05/29/14 [History] Metoprolol Succinate [Toprol XL] 25 mg PO DAILY #30 tab.er 06/16/14 [Rx] Cholecalciferol (Vitamin D3) [Vitamin D3] 400 units PO BID 01/14/15 [History] Furosemide 20 mg PO DAILY PRN 01/14/15 [History] Hydrocodone/Acetaminophen [Hydrocodon-Acetaminophn 10-325] 1 tab PO Q4H PRN 10/21 [History] Hydroxychloroquine Sulfate [Plaquenil] 200 mg PO BID 01/14/15 [History] predniSONE [Shakila] 4 mg PO DAILY 01/14/15 [History] Gabapentin [Neurontin] 100 mg PO DAILY@1200 cap 01/25/15 [Rx] Acetaminophen 1 - 2 tab PO Q3H PRN 12/10/16 [History] Baclofen 1 tab PO ASDIRECTED 12/10/16 [History] Baclofen 1 tab PO WITHBREAKFAST 12/10/16 [History] Baclofen 1.5 tab PO BEDTIME 12/10/16 [History] DULoxetine HCl [Duloxetine HCl] 1 tab PO DAILY 12/10/16 [History] Gabapentin [Neurontin] 200 mg PO BEDTIME 12/10/16 [History] Gabapentin [Neurontin] 200 mg PO QAM 12/10/16 [History] Nystatin 1 each TOP BID PRN 12/10/16 [History] Past Medical History Cardiovascular History: Reports: Other (See Below) Other Cardiovascular History: 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 legal records clerk and being worked up for aortic stenosis Gastrointestinal History: Reports: Bowel Obstruction, Chronic Constipation Genitourinary History: Reports: Renal Disease Other Genitourinary History: stage 3 kidney disease Other OB/BYN History: 2 children Musculoskeletal History: Reports: Arthritis, Back Pain, Chronic - Past Surgical History HEENT Surgical History: Reports: Other (See Below) Other HEENT Surgeries/Procedures: Tonsilectomy as a child Female Surgical History: Reports: Hysterectomy Other Musculoskeletal Surgeries/Procedures:: back/neck surgeries Social & Family History - Family History Cardiac: Reports: CAD - Tobacco Use Smoking Status *Q: Former Smoker Used Tobacco, but Quit: Yes Month/Year Tobacco Last Used: 26 years ago. Tobacco Use Comment: Quit smoking 26 years ago. Second Hand Smoke Exposure: No - Caffeine Use Caffeine Use: Reports: Soda Caffeine Use Comment: 3 diet cokes per week. - Recreational Drug Use Recreational Drug Use: No H&P Review of Systems - Review of Systems: Review Of Systems: See Below Exam - Exam Exam: See Below - Vital Signs Vital Signs: Last Vital Signs Temp 37.5 C 07/22/18 05:19 Pulse 68 07/22/18 05:19 Resp 12 07/22/18 05:19 BP 116/56 L 07/22/18 05:19 Pulse Ox 96 07/22/18 05:19 Weight: 96.162 kg - Patient Data Lab Results Last 24 hrs: Laboratory Results - last 24 hr 07/21/18 07/21/18 07/22/18 Range/Units 21:05 21:05 07:22 WBC 10.8 H 8.1 (4.0-10.0) x10^3/uL RBC 4.20 3.47 L (4.00-5.50) x10^6/uL Hgb 12.6 D 10.5 L D (12.0-16.0) g/dL Hct 39.7 33.3 (33.0-47.0) % MCV 94.5 H 96.0 H (78.0-93.0) fL MCH 30.0 30.3 (26.0-32.0) pg MCHC 31.7 L 31.5 L (32.0-36.0) g/dL RDW Coeff of Isaura 13.2 13.1 (10.0-15.0) % Plt Count 154 133 (130-400) x10^3/uL Neut % (Auto) 79.9 71.3 (50.0-80.0) % Lymph % (Auto) 11.7 L 19.3 L (25.0-50.0) % [place] % (Auto) 6.8 7.7 (2.0-11.0) % Eos % (Auto) 1.4 1.5 (0.0-4.0) % Baso % (Auto) 0.2 0.2 (0.2-1.2) % Sodium 141 (136-145) mmol/L Potassium 5.0 (3.5-5.1) mmol/L Chloride 101 (98-107) mmol/L Carbon Dioxide 31 (21-32) mmol/L Anion Gap 14.0 (10-20) mmol/L BUN 26 H (7-18) mg/dL Creatinine 1.4 H (0.55-1.02) mg/dL Est Cr Clr Drug Dosing TNP Estimated GFR (MDRD) 37 Glucose 105 (74-106) mg/dL Calcium 9.7 (8.5-10.1) mg/dL Corrected Calcium 9.70 (8.5-10.1) mg/dL Total Bilirubin 0.5 (0.2-1.0) mg/dL AST 27 (15-37) U/L ALT 27 (14-59) U/L Alkaline Phosphatase 76 (46-116) U/L NT-Pro-B Natriuret Pep 245 H (<=125) pg/mL Total Protein 8.8 H (6.4-8.2) g/dL Albumin 4.0 (3.4-5.0) g/dL Globulin 4.8 Albumin/Globulin Ratio 0.83 Amylase 85 (25-115) U/L 07/22/18 Range/Units 07:22 WBC (4.0-10.0) x10^3/uL RBC (4.00-5.50) x10^6/uL Hgb (12.0-16.0) g/dL Hct (33.0-47.0) % MCV (78.0-93.0) fL MCH (26.0-32.0) pg MCHC (32.0-36.0) g/dL RDW Coeff of Isaura (10.0-15.0) % Plt Count (130-400) x10^3/uL Neut % (Auto) (50.0-80.0) % Lymph % (Auto) (25.0-50.0) % [place] % (Auto) (2.0-11.0) % Eos % (Auto) (0.0-4.0) % Baso % (Auto) (0.2-1.2) % Sodium 141 (136-145) mmol/L Potassium 5.0 (3.5-5.1) mmol/L Chloride 103 (98-107) mmol/L Carbon Dioxide 33 H (21-32) mmol/L Anion Gap 10.0 (10-20) mmol/L BUN 23 H (7-18) mg/dL Creatinine 1.3 H (0.55-1.02) mg/dL Est Cr Clr Drug Dosing TNP Estimated GFR (MDRD) 40 Glucose 100 (74-106) mg/dL Calcium 8.4 L (8.5-10.1) mg/dL Corrected Calcium 9.12 (8.5-10.1) mg/dL Total Bilirubin 0.4 (0.2-1.0) mg/dL AST 24 (15-37) U/L ALT 22 (14-59) U/L Alkaline Phosphatase 63 (46-116) U/L NT-Pro-B Natriuret Pep (<=125) pg/mL Total Protein 7.0 (6.4-8.2) g/dL Albumin 3.1 L (3.4-5.0) g/dL Globulin 3.9 Albumin/Globulin Ratio 0.79 Amylase (25-115) U/L Result Diagrams: 07/22/18 07:22 07/22/18 07:22 Problem List Initiated/Reviewed/Updated: Yes Orders Last 24hrs: Active Orders 24 hr Category Date Time Status Patient Status [ADT] Routine ADT 07/21/18 22:48 Active Patient Status [ADT] Routine ADT 07/21/18 23:31 Active Antiembolic Devices [RC] 08,20 Care 07/21/18 23:34 Active Fecal Occult Bld Diag Imm [RC] ASDIRECTED Care 07/22/18 08:40 Ordered Intake and Output [RC] 06,18 Care 07/21/18 23:33 Active Oxygen Therapy [RC] .PRN Care 07/21/18 23:31 Active Up ad Barb [RC] 08,20 Care 07/21/18 23:31 Active VTE/DVT Education [RC] .PRN Care 07/21/18 23:31 Active Vital Signs [RC] 02,06,10,14,18,22 Care 07/21/18 23:31 Active Advance Diet Instructions [DIET] Diet 07/22/18 Lunch Ordered BASIC METABOLIC PANEL,BMP [CHEM] AM Lab 07/23/18 05:11 Ordered CBC WITH AUTO DIFF [HEME] AM Lab 07/23/18 05:11 Ordered FOLATE [REF] Routine Lab 07/22/18 08:39 Ordered IRON & TIBC [REF] Routine Lab 07/22/18 08:39 Ordered TSH ULTRASENSITIVE [CHEM] Routine Lab 07/22/18 08:39 Ordered VITAMIN B12 [REF] Routine Lab 07/22/18 08:39 Ordered Acetaminophen/HYDROcodone [[place] 325-10 MG] Med 07/21/18 23:35 Active 1 tab PO Q4H PRN Aspirin [Halfprin] Med 07/23/18 08:00 Ordered 81 mg PO DAILY Baclofen [Lioresal] Med 07/22/18 14:00 Active 10 mg PO DAILY@1400 Baclofen [Lioresal] Med 07/22/18 08:00 Active 10 mg PO WITHBREAKFAST Baclofen [Lioresal] Med 07/22/18 20:00 Active 15 mg PO BEDTIME DULoxetine [Cymbalta] Med 07/22/18 08:00 Active 30 mg PO DAILY DULoxetine [Cymbalta] Med 07/22/18 08:00 Active 60 mg PO DAILY Furosemide [Lasix] Med 07/21/18 23:35 Active 20 mg PO DAILY PRN Gabapentin [Neurontin] Med 07/22/18 12:00 Active 100 mg PO DAILY@1200 Gabapentin [Neurontin] Med 07/22/18 20:00 Active 200 mg PO BEDTIME Gabapentin [Neurontin] Med 07/22/18 08:00 Active 200 mg PO QAM Hydroxychloroquine [Plaquenil] Med 07/22/18 20:00 Ordered 200 mg PO BID Lactated Ringers [Ringers, Lactated] 1,000 ml Med 07/21/18 21:00 Active IV ASDIRECTED Metoprolol Succinate [Toprol XL] Med 07/22/18 08:00 Active 25 mg PO DAILY Nystatin [Nystatin] Med 07/22/18 08:40 Ordered 1 each TOP BID PRN Ondansetron [Zofran] Med 07/21/18 23:31 Active 4 mg IV Q6H PRN Sodium Chloride 0.9% [Saline Flush] Med 07/21/18 20:46 Active 10 ml FLUSH ASDIRECTED PRN fentaNYL [Duragesic] Med 07/22/18 00:00 Active 50 mcg TRDERM Q48H predniSONE Med 07/22/18 08:00 Active 4 mg PO DAILY Nasogastric Orogastric Tube Insertion [OM.PC] Urgent Oth 07/21/18 23:33 Ordered Saline Lock Insert [OM.PC] Routine Oth 07/21/18 20:46 Ordered Sequential Compression Device [OM.PC] Per Unit Routine Oth 07/21/18 23:33 Ordered Resuscitation Status Routine Resus Stat 07/21/18 23:31 Ordered Medication Orders Hydrocodone Bitart/Acetaminophen ([place] 325-10 Mg) 1 tab PO Q4H PRN PRN Reason: Pain (moderate 4-6) Last Admin: 07/22/18 03:15 Dose: 1 tab Baclofen (Lioresal) 10 mg PO WITHBREAKFAST CARLA Baclofen (Lioresal) 15 mg PO BEDTIME CARLA Baclofen (Lioresal) 10 mg PO DAILY@1400 CARLA Duloxetine HCl (Cymbalta) 30 mg PO DAILY CARLA Duloxetine HCl (Cymbalta) 60 mg PO DAILY CARLA Fentanyl (Duragesic) 50 mcg TRDERM Q48H CARLA Last Admin: 07/22/18 01:00 Dose: 50 mcg Furosemide (Lasix) 20 mg PO DAILY PRN PRN Reason: Edema Last Admin: 07/22/18 00:41 Dose: 20 mg Gabapentin (Neurontin) 100 mg PO DAILY@1200 CARLA Gabapentin (Neurontin) 200 mg PO QAM CARAL Gabapentin (Neurontin) 200 mg PO BEDTIME CARLA Lactated Ringer's (Ringers, Lactated) 1,000 mls @ 999 mls/hr IV ASDIRECTED CARLA Last Admin: 07/21/18 21:15 Dose: 999 mls/hr Metoprolol Succinate (Toprol Xl) 25 mg PO DAILY [facility] Ondansetron HCl (Zofran) 4 mg IV Q6H PRN PRN Reason: Nausea/Vomiting Prednisone (Prednisone) 4 mg PO DAILY [facility] Sodium Chloride (Saline Flush) 10 ml FLUSH ASDIRECTED PRN PRN Reason: Keep Vein Open
[2018-07-22] MEDS ORDERED: Miconazole 2% Top Powder 45 GM Container TOP PRN (09:00)
[2018-07-22] MEDS: DULoxetine 30 MG Cap PO SCH (10:52)
[2018-07-22] MEDS: DULoxetine 60 MG Cap PO SCH (10:52)
[2018-07-22] MEDS: Metoprolol Succinate 25 MG Tab.ER PO SCH (10:54)
[2018-07-22] MEDS: Baclofen 10 MG Tab PO SCH ×3 (10:55→19:47)
[2018-07-22] MEDS: Gabapentin 100 MG Cap PO SCH ×3 (10:55→19:48)
[2018-07-22] MEDS: predniSONE 1 MG Tab PO SCH (10:59)
[2018-07-22] MEDS: Hydroxychloroquine 200 MG Tab PO SCH (19:48)
[2018-07-22] MEDS: Sodium Chloride 0.9% 10 ML Syringe FLUSH PRN (19:55)
[2018-07-23] MEDS: Acetaminophen/HYDROcodone 325-10 MG Tab PO PRN ×5 (04:49→21:07)
[2018-07-23 07:05] LABS: ANION GAP 12.3 mmol/L (10-20)
--- NOTE | 2018-07-23 08:33 | PCM.PN ---
- General Info Date of Service: 07/23/18 Subjective Update: 72 yo female hospital day #3 admitted with small bowel obstruction after presenting to the ER with abdominal pain, distension, nausea, and vomiting. Patient states she is feeling much better. Her abdomen is less firm and she did have a small watery stool last night. She is passing gas but not anywhere near her normal. She is having less stomach pain but notes that she still does have some soreness. She is tolerating the clear liquids without any issues. No nausea or vomiting. She is having increased back pain related to being in the hospital bed and is hoping to go home as soon as possible. - Review of Systems General: Reports: No Symptoms HEENT: Reports: No Symptoms Pulmonary: Reports: No Symptoms Cardiovascular: Reports: No Symptoms Genitourinary: Reports: No Symptoms Musculoskeletal: Reports: Back Pain Skin: Reports: No Symptoms - Patient Data Vitals - Most Recent: Last Vital Signs Temp 36.7 C 07/23/18 04:59 Pulse 67 07/23/18 04:59 Resp 20 07/23/18 04:59 BP 142/82 H 07/23/18 04:59 Pulse Ox 99 07/23/18 04:59 Weight - Most Recent: 96.162 kg I&O - Last 24 Hours: Intake & Output 07/22/18 07/23/18 07/23/18 22:59 06:59 14:59 Intake Total 400 200 Output Total 850 600 Balance -450 -400 Lab Results Last 24 Hours: Laboratory Results - last 24 hr 07/22/18 07/22/18 07/22/18 Range/Units 09:25 09:25 09:25 WBC (4.0-10.0) x10^3/uL RBC (4.00-5.50) x10^6/uL Hgb (12.0-16.0) g/dL Hct (33.0-47.0) % MCV (78.0-93.0) fL MCH (26.0-32.0) pg MCHC (32.0-36.0) g/dL RDW Coeff of Isaura (10.0-15.0) % Plt Count (130-400) x10^3/uL Neut % (Auto) (50.0-80.0) % Lymph % (Auto) (25.0-50.0) % Harvey % (Auto) (2.0-11.0) % Eos % (Auto) (0.0-4.0) % Baso % (Auto) (0.2-1.2) % Sodium (136-145) mmol/L Potassium (3.5-5.1) mmol/L Chloride (98-107) mmol/L Carbon Dioxide (21-32) mmol/L Anion Gap (10-20) mmol/L BUN (7-18) mg/dL Creatinine (0.55-1.02) mg/dL Est Cr Clr Drug Dosing mL/min Estimated GFR (MDRD) Glucose (74-106) mg/dL Calcium (8.5-10.1) mg/dL Iron (50-170) ug/dL TIBC (250-450) ug/dL % Saturation (20.0-50.0) % Vitamin B12 604 (180-914) pg/mL Folate 14.5 ng/mL TSH, Ultra Sensitive 0.543 (0.358-3.74) uIU/mL 07/22/18 07/23/18 07/23/18 Range/Units 09:25 06:14 06:14 WBC 6.2 (4.0-10.0) x10^3/uL RBC 3.49 L (4.00-5.50) x10^6/uL Hgb 10.5 L (12.0-16.0) g/dL Hct 34.2 (33.0-47.0) % MCV 98.0 H (78.0-93.0) fL MCH 30.1 (26.0-32.0) pg MCHC 30.7 L (32.0-36.0) g/dL RDW Coeff of Isaura 13.2 (10.0-15.0) % Plt Count 145 (130-400) x10^3/uL Neut % (Auto) 62.0 (50.0-80.0) % Lymph % (Auto) 24.8 L (25.0-50.0) % Harvey % (Auto) 9.3 (2.0-11.0) % Eos % (Auto) 3.6 (0.0-4.0) % Baso % (Auto) 0.3 (0.2-1.2) % Sodium 141 (136-145) mmol/L Potassium 4.3 (3.5-5.1) mmol/L Chloride 102 (98-107) mmol/L Carbon Dioxide 31 (21-32) mmol/L Anion Gap 12.3 (10-20) mmol/L BUN 19 H (7-18) mg/dL Creatinine 1.1 H (0.55-1.02) mg/dL Est Cr Clr Drug Dosing 40.51 mL/min Estimated GFR (MDRD) 49 Glucose 85 (74-106) mg/dL Calcium 8.3 L (8.5-10.1) mg/dL Iron 84 (50-170) ug/dL TIBC 274 (250-450) ug/dL % Saturation 30.7 (20.0-50.0) % Vitamin B12 (180-914) pg/mL Folate ng/mL TSH, Ultra Sensitive (0.358-3.74) uIU/mL Med Orders - Current: Current Medications Hydrocodone Bitart/Acetaminophen ([place] 325-10 Mg) 1 tab PO Q4H PRN PRN Reason: Pain (moderate 4-6) Last Admin: 07/23/18 04:49 Dose: 1 tab Aspirin (Halfprin) 81 mg PO DAILY [facility] Baclofen (Lioresal) 10 mg PO WITHBREAKFAST [facility] Last Admin: 07/22/18 10:55 Dose: 10 mg Baclofen (Lioresal) 15 mg PO BEDTIME [facility] Last Admin: 07/22/18 19:47 Dose: 15 mg Baclofen (Lioresal) 10 mg PO DAILY@1400 [facility] Last Admin: 07/22/18 13:09 Dose: 10 mg Duloxetine HCl (Cymbalta) 30 mg PO DAILY [facility] Last Admin: 07/22/18 10:52 Dose: 30 mg Duloxetine HCl (Cymbalta) 60 mg PO DAILY [facility] Last Admin: 07/22/18 10:52 Dose: 60 mg Fentanyl (Duragesic) 50 mcg TRDERM Q48H [facility] Last Admin: 07/22/18 01:00 Dose: 50 mcg Furosemide (Lasix) 20 mg PO DAILY PRN PRN Reason: Edema Last Admin: 07/22/18 00:41 Dose: 20 mg Gabapentin (Neurontin) 100 mg PO DAILY@1200 [facility] Last Admin: 07/22/18 13:09 Dose: 100 mg Gabapentin (Neurontin) 200 mg PO QAM [facility] Last Admin: 07/22/18 10:55 Dose: 200 mg Gabapentin (Neurontin) 200 mg PO BEDTIME [facility] Last Admin: 07/22/18 19:48 Dose: 200 mg Hydroxychloroquine Sulfate (Plaquenil) 200 mg PO BID [facility] Last Admin: 07/22/18 19:48 Dose: 200 mg Lactated Ringer's (Ringers, Lactated) 1,000 mls @ 999 mls/hr IV ASDIRECTED [facility] Last Admin: 07/21/18 21:15 Dose: 999 mls/hr Metoprolol Succinate (Toprol Xl) 25 mg PO DAILY [facility] Last Admin: 07/22/18 10:54 Dose: 25 mg Miconazole (Desenex 2%) 0 gm TOP BID PRN PRN Reason: RASH Ondansetron HCl (Zofran) 4 mg IV Q6H PRN PRN Reason: Nausea/Vomiting Prednisone (Prednisone) 4 mg PO DAILY [facility] Last Admin: 07/22/18 10:59 Dose: 4 mg Sodium Chloride (Saline Flush) 10 ml FLUSH ASDIRECTED PRN PRN Reason: Keep Vein Open Last Admin: 07/22/18 19:55 Dose: 10 ml Discontinued Medications Iopamidol (Isovue-300 (61%)) 100 ml IVPUSH ONETIME ONE Stop: 07/21/18 21:06 Last Admin: 07/21/18 22:02 Dose: 100 ml Metoclopramide HCl (Reglan) 10 mg IVPUSH ONETIME ONE Stop: 07/21/18 23:40 Last Admin: 07/22/18 00:42 Dose: 10 mg Ondansetron HCl (Zofran) 4 mg IVPUSH ONETIME ONE Stop: 07/21/18 20:47 Last Admin: 07/21/18 21:20 Dose: 4 mg - Exam General: Alert, Oriented, Cooperative, No Acute Distress HEENT: Pupils Equal, Pupils Reactive, Mucous Membr. Moist/[place] Neck: Supple, Trachea Midline, No Thyromegaly. No: Lymphadenopathy Lungs: Clear to Auscultation, Normal Respiratory Effort Cardiovascular: Regular Rate, Regular Rhythm, Murmurs GI/Abdominal Exam: Soft, No Organomegaly, No Distention, No Mass, Tender (mild diffuse tenderness without any rebound, rigidity, or guarding), Abnormal Bowel Sounds (hypoactive) Extremities: Non-Tender, No Pedal Edema, Normal Capillary Refill Peripheral Pulses: 2+: Radial (L), Radial (R) Skin: Warm, Dry, Intact - Problem List & Annotations (1) Small bowel obstruction SNOMED Code(s): 601313505 Code(s): K56.609 - UNSP INTESTNL OBST, UNSP TO PARTIAL VERSUS COMPLETE OBST Status: Acute Priority: Medium Current Visit: Yes (2) Anemia SNOMED Code(s): 269925752 Code(s): D64.9 - ANEMIA, UNSPECIFIED Status: Acute Current Visit: Yes Qualifiers: Anemia type: unspecified type Qualified Code(s): D64.9 - Anemia, unspecified (3) Chronic back pain SNOMED Code(s): 962497994 Code(s): M54.9 - DORSALGIA, UNSPECIFIED; G89.29 - OTHER CHRONIC PAIN Status : Chronic Current Visit: No Qualifiers: Back pain location: low back pain Back pain laterality: unspecified Sciatica presence: unspecified whether sciatica present Qualified Code(s): M54.5 - Low back pain; G89.29 - Other chronic pain (4) Hyperlipidemia SNOMED Code(s): 10689909 Code(s): E78.5 - HYPERLIPIDEMIA, UNSPECIFIED Status: Chronic Current Visit: No Qualifiers: Hyperlipidemia type: unspecified Qualified Code(s): E78.5 - Hyperlipidemia , unspecified (5) Hypertension, essential SNOMED Code(s): 76159118 Code(s): I10 - ESSENTIAL (PRIMARY) HYPERTENSION Status: Chronic Current Visit: No (6) Aortic stenosis SNOMED Code(s): 54836087 Code(s): I35.0 - NONRHEUMATIC AORTIC (VALVE) STENOSIS Status: Chronic Current Visit: Yes Qualifiers: Cardiac valve disease etiology: nonrheumatic Qualified Code(s): I35.0 - Nonrheumatic aortic (valve) stenosis (7) Obstructive sleep apnea SNOMED Code(s): 15587332 Code(s): G47.33 - OBSTRUCTIVE SLEEP APNEA (ADULT) (PEDIATRIC) Status: Chronic Current Visit: Yes (8) CKD (chronic kidney disease) SNOMED Code(s): 036801816 Code(s): N18.9 - CHRONIC KIDNEY DISEASE, UNSPECIFIED Status: Chronic Current Visit: Yes Qualifiers: Chronic kidney disease stage: stage 3 (moderate) Qualified Code(s): N18.3 - Chronic kidney disease, stage 3 (moderate) - Problem List Review Problem List Initiated/Reviewed/Updated: Yes - Assessment Assessment:: 72 yo female admitted with small bowel obstruction. Is improving but symptoms are not resolved. Labs are stable/improved today. - Plan Plan:: #1 Small bowel obstruction - Is improving with conservative therapies. - Did not require an NG tube as nausea and vomiting resolved. - Symptoms are not resolved and she would be a high readmission risk if discharged home with the current symptoms she is having. - Will continue clear liquids for now given hypoactive bowel sounds and minimal flatus. Will plan to reassess this pm and go from there. #2 Anemia - Patient has not had a CBC in clinic for almost 1 year; therefore, this anemia would be considered new onset. - Iron studies, B12, and folate all within normal limits. - Stool for occult blood has been ordered. If not done while inpatient, will follow-up on this as an outpatient. - Patient is overdue for colorectal cancer screening as she does not feel she would be able to complete the prep for colonoscopy with her severe arthritis. She was considering Cologuard and we will follow-up on this as well. #3 Chronic Back pain - Home medications have been continued. - Would like to get her home as soon as possible but she is not prepared for dismissal at this time. #4 Hyperlipidemia #5 Hypertension #6 Aortic stenosis, severe #7 YUDITH #8 CKD - All stable. - Home medications continued. Patient will remain on acute status throughout the day today - will reassess this pm whether she is ready for dismissal home. Otherwise, anticipate dismissal home tomorrow. See details under problems above. Code status is full. Hemoglobin is stable today and it is unlikely patient will require surgical intervention for her bowel obstruction. Therefore, will start lovenox for VTE prophylaxis.
[2018-07-23] MEDS: DULoxetine 30 MG Cap PO SCH (08:46)
[2018-07-23] MEDS: Baclofen 10 MG Tab PO SCH ×3 (08:46→19:31)
[2018-07-23] MEDS: predniSONE 1 MG Tab PO SCH (08:46)
[2018-07-23] MEDS: Hydroxychloroquine 200 MG Tab PO SCH ×2 (08:46→19:31)
[2018-07-23] MEDS: Aspirin 81 MG Tab.EC PO SCH (08:46)
[2018-07-23] MEDS: Gabapentin 100 MG Cap PO SCH ×3 (08:47→19:30)
[2018-07-23] MEDS: DULoxetine 60 MG Cap PO SCH (08:48)
[2018-07-23] MEDS: Metoprolol Succinate 25 MG Tab.ER PO SCH (08:48)
[2018-07-23] MEDS: Enoxaparin 40 MG/0.4 ML Syringe SUBCUT SCH (13:03)
[2018-07-23] MEDS: Sodium Chloride 0.9% 10 ML Syringe FLUSH PRN (19:37)
[2018-07-24] MEDS: fentaNYL 50 MCG/HR Transdermal Patch TRDERM SCH (00:12)
[2018-07-24] MEDS: Acetaminophen/HYDROcodone 325-10 MG Tab PO PRN ×2 (05:28→10:47)
[2018-07-24] MEDS: Aspirin 81 MG Tab.EC PO SCH (08:01)
[2018-07-24] MEDS: predniSONE 1 MG Tab PO SCH (08:01)
[2018-07-24] MEDS: Baclofen 10 MG Tab PO SCH ×2 (08:02→13:34)
[2018-07-24] MEDS: Hydroxychloroquine 200 MG Tab PO SCH (08:02)
[2018-07-24] MEDS: DULoxetine 30 MG Cap PO SCH (08:02)
[2018-07-24] MEDS: Gabapentin 100 MG Cap PO SCH ×2 (08:02→12:05)
[2018-07-24] MEDS: Metoprolol Succinate 25 MG Tab.ER PO SCH (08:02)
[2018-07-24] MEDS: DULoxetine 60 MG Cap PO SCH (08:02)
[2018-07-24] MEDS: Enoxaparin 40 MG/0.4 ML Syringe SUBCUT SCH (08:03)
[2018-07-24 08:11] LABS: ANION GAP 10.5 mmol/L (10-20)
[2018-07-24 13:47] VITALS: BP 148/68
--- NOTE | 2018-07-24 14:47 | PCM.DCSUM1 ---
Discharge Summary - Hospital Course HPI Initial Comments: 72 yo female hospital day #4 admitted with small bowel obstruction after presenting to the ER with abdominal pain, distension, nausea, and vomiting. Patient states she is feeling much better has progressed to full liquads last night and did have a light lunch and tolerated it well. Her abdomen is Soft and nontender, small watery stools noted and is passing gas. She is having less stomach pain but notes that she still does have some soreness but is able to be up in the halls walking. No nausea or vomiting. She is having increased back pain related to being in the hospital bed and is hoping to go home as soon as possible. Patient is requesting to be discharged for she feels she is better. Diagnosis: Stroke: No - Discharge Data Discharge Date: 07/24/18 Discharge Disposition: Home, Self-Care 01 Condition: Stable - Discharge Diagnosis/Problem(s) (1) Small bowel obstruction SNOMED Code(s): 202260058 ICD Code: K56.609 - UNSP INTESTNL OBST, UNSP TO PARTIAL VERSUS COMPLETE OBST Status: Acute Priority: Medium Current Visit: Yes - Patient Instructions Diet: Usual Diet as Tolerated Activity: As Tolerated, No Strenuous Activities Driving: Do Not Drive (while you are taking all the pain medications ) Showering/Bathing: May Shower Notify Provider of: Increased Pain Other/Special Instructions: 1. rest. 2. Continue to increase your water intake. 3. Take your medications as prescribed especially the medications to help keep your stools less firm. 4. Follow up in the clinic on Thursday or Thursday for close follow up. 5. Do not drive or operate heavy equipment while taking controlled substance/pain medication. 6. Ensure you are up and walking around to keep the bowels moving. 7. Return the stool sample when it is collected. 8. Activity and diet as tolerated. 9. Call with questions or concerns - Discharge Plan *PRESCRIPTION DRUG MONITORING PROGRAM REVIEWED*: Not Applicable *COPY OF PRESCRIPTION DRUG MONITORING REPORT IN PATIENT IVETT: Not Applicable Home Medications: Home Meds Aspirin [Halfprin] 81 mg PO DAILY 09/11/13 [History] Calcium Carb & Citrate/Vit D3 [Calcium + D3 ER Tablet] 1 each PO BID 09/11/13 [ History] DULoxetine [Cymbalta] 1 tab PO DAILY 09/11/13 [History] Multivitamin [Multi-Vitamin Daily] 1 each PO DAILY 09/11/13 [History] Oxybutynin Chloride [Ditropan Xl] 5 mg PO WITHLUNCH 09/11/13 [History] Ubidecarenone [Co Q-10] 50 mg PO DAILY 09/11/13 [History] Vitamin E 400 unit PO DAILY 09/11/13 [History] fentaNYL [Fentanyl] 50 mcg TD Q48H 05/29/14 [History] Metoprolol Succinate [Toprol XL] 25 mg PO DAILY #30 tab.er 06/16/14 [Rx] Cholecalciferol (Vitamin D3) [Vitamin D3] 400 units PO BID 01/14/15 [History] Furosemide 20 mg PO DAILY PRN 01/14/15 [History] Hydrocodone/Acetaminophen [Hydrocodon-Acetaminophn 10-325] 1 tab PO Q4H PRN 10/21 [History] Hydroxychloroquine Sulfate [Plaquenil] 200 mg PO BID 01/14/15 [History] predniSONE [Shakila] 4 mg PO DAILY 01/14/15 [History] Gabapentin [Neurontin] 100 mg PO DAILY@1200 cap 01/25/15 [Rx] Acetaminophen 1 - 2 tab PO Q3H PRN 12/10/16 [History] Baclofen 1 tab PO ASDIRECTED 12/10/16 [History] Baclofen 1 tab PO WITHBREAKFAST 12/10/16 [History] Baclofen 1.5 tab PO BEDTIME 12/10/16 [History] DULoxetine HCl [Duloxetine HCl] 1 tab PO DAILY 12/10/16 [History] Gabapentin [Neurontin] 200 mg PO BEDTIME 12/10/16 [History] Gabapentin [Neurontin] 200 mg PO QAM 12/10/16 [History] Nystatin 1 each TOP BID PRN 12/10/16 [History] Patient Handouts: Small Bowel Obstruction Forms: ED Department Discharge Referrals: Crystal Parks MD [Primary Care Provider] - - Discharge Summary/Plan Comment DC Time >30 min.: No Discharge Summary/Plan Comment: 1. Patient will be discharged home with close follow up care in the clinic next week 2. Stool culture supplies will be sent with the patient 3. Activity and diet as tolerated 4. Follow up instructions provided to the patient 5. All questions and concerns addressed prior to the patients discharge - General Info Date of Service: 07/24/18 Admission Dx/Problem (Free Text: Admission Diagnosis/Problem Admission Diagnosis/Problem Small bowel obstruction Subjective Update: #1 Small bowel obstruction-resolved. -passing gas -more firm stools noted -bowel sounds active in all quadrants -tolerating food and beverages #2 Anemia - Patient continues to have low RBCs. Pt will have further studies and evaluation completed in the clinic setting. - Stool for occult blood has been ordered. If not done while inpatient, will follow-up on this as an outpatient. Information and supplies were sent with the patient at time of discharge - Patient is overdue for colorectal cancer screening as she does not feel she would be able to complete the prep for colonoscopy with her severe arthritis. She was considering Cologuard and we will follow-up on this as well. #3 Chronic Back pain - Home medications have been continued. - Patient has been advised to use heat or ice for 20 minutes at a time 3-4 times a day and to ensure she is up and ambulating often. #4 Hyperlipidemia #5 Hypertension #6 Aortic stenosis, severe #7 YUDITH #8 CKD - All stable. Patient is requesting to go back home. She is tolerating fluids and food, passing gas and has had some watery stools. Stool samples were not collected while hospitalized. Supplies will be sent with the patient. It is recommended the patient follow up in the clinic early in the week. Functional Status: Reports: Pain Controlled, Tolerating Diet, Ambulating, Urinating - Review of Systems General: Reports: No Symptoms HEENT: Reports: No Symptoms Pulmonary: Reports: No Symptoms Cardiovascular: Reports: No Symptoms Gastrointestinal: Reports: No Symptoms Musculoskeletal: Reports: No Symptoms Skin: Reports: No Symptoms Neurological: Reports: No Symptoms Psychiatric: Reports: No Symptoms - Patient Data Vitals - Most Recent: Last Vital Signs Temp 36.9 C 07/24/18 13:46 Pulse 72 07/24/18 13:46 Resp 16 07/24/18 13:46 BP 148/68 H 07/24/18 13:46 Pulse Ox 97 07/24/18 13:46 Weight - Most Recent: 96.162 kg I&O - Last 24 hours: Intake & Output 07/23/18 07/24/18 07/24/18 22:59 06:59 14:59 Intake Total 180 100 Output Total 600 800 Balance -420 -700 Lab Results - Last 24 hrs: Laboratory Results - last 24 hr 07/24/18 07/24/18 Range/Units 07:22 07:22 WBC 5.9 (4.0-10.0) x10^3/uL RBC 3.51 L (4.00-5.50) x10^6/uL Hgb 10.6 L (12.0-16.0) g/dL Hct 34.1 (33.0-47.0) % MCV 97.2 H (78.0-93.0) fL MCH 30.2 (26.0-32.0) pg MCHC 31.1 L (32.0-36.0) g/dL RDW Coeff of Isaura 13.1 (10.0-15.0) % Plt Count 143 (130-400) x10^3/uL Neut % (Auto) 59.5 (50.0-80.0) % Lymph % (Auto) 27.2 (25.0-50.0) % Ada % (Auto) 9.8 (2.0-11.0) % Eos % (Auto) 3.2 (0.0-4.0) % Baso % (Auto) 0.3 (0.2-1.2) % Sodium 141 (136-145) mmol/L Potassium 4.5 (3.5-5.1) mmol/L Chloride 102 (98-107) mmol/L Carbon Dioxide 33 H (21-32) mmol/L Anion Gap 10.5 (10-20) mmol/L BUN 16 (7-18) mg/dL Creatinine 1.2 H (0.55-1.02) mg/dL Est Cr Clr Drug Dosing 37.13 mL/min Estimated GFR (MDRD) 44 Glucose 87 (74-106) mg/dL Calcium 8.6 (8.5-10.1) mg/dL Med Orders - Current: Current Medications Hydrocodone Bitart/Acetaminophen ([place] 325-10 Mg) 1 tab PO Q4H PRN PRN Reason: Pain (moderate 4-6) Last Admin: 07/24/18 10:47 Dose: 1 tab Aspirin (Halfprin) 81 mg PO DAILY [facility] Last Admin: 07/24/18 08:01 Dose: 81 mg Baclofen (Lioresal) 10 mg PO WITHBREAKFAST [facility] Last Admin: 07/24/18 08:02 Dose: 10 mg Baclofen (Lioresal) 15 mg PO BEDTIME [facility] Last Admin: 07/23/18 19:31 Dose: 15 mg Baclofen (Lioresal) 10 mg PO DAILY@1400 [facility] Last Admin: 07/24/18 13:34 Dose: 10 mg Duloxetine HCl (Cymbalta) 30 mg PO DAILY [facility] Last Admin: 07/24/18 08:02 Dose: 30 mg Duloxetine HCl (Cymbalta) 60 mg PO DAILY [facility] Last Admin: 07/24/18 08:02 Dose: 60 mg Enoxaparin Sodium (Lovenox) 40 mg SUBCUT DAILY [facility] Last Admin: 07/24/18 08:03 Dose: 40 mg Fentanyl (Duragesic) 50 mcg TRDERM Q48H [facility] Last Admin: 07/24/18 00:12 Dose: 50 mcg Furosemide (Lasix) 20 mg PO DAILY PRN PRN Reason: Edema Last Admin: 07/22/18 00:41 Dose: 20 mg Gabapentin (Neurontin) 100 mg PO DAILY@1200 [facility] Last Admin: 07/24/18 12:05 Dose: 100 mg Gabapentin (Neurontin) 200 mg PO QAM [facility] Last Admin: 07/24/18 08:02 Dose: 200 mg Gabapentin (Neurontin) 200 mg PO BEDTIME [facility] Last Admin: 07/23/18 19:30 Dose: 200 mg Hydroxychloroquine Sulfate (Plaquenil) 200 mg PO BID [facility] Last Admin: 07/24/18 08:02 Dose: 200 mg Lactated Ringer's (Ringers, Lactated) 1,000 mls @ 999 mls/hr IV ASDIRECTED [facility] Last Admin: 07/21/18 21:15 Dose: 999 mls/hr Metoprolol Succinate (Toprol Xl) 25 mg PO DAILY [facility] Last Admin: 07/24/18 08:02 Dose: 25 mg Miconazole (Desenex 2%) 0 gm TOP BID PRN PRN Reason: RASH Ondansetron HCl (Zofran) 4 mg IV Q6H PRN PRN Reason: Nausea/Vomiting Prednisone (Prednisone) 4 mg PO DAILY [facility] Last Admin: 07/24/18 08:01 Dose: 4 mg Sodium Chloride (Saline Flush) 10 ml FLUSH ASDIRECTED PRN PRN Reason: Keep Vein Open Last Admin: 07/23/18 19:37 Dose: 10 ml Discontinued Medications Iopamidol (Isovue-300 (61%)) 100 ml IVPUSH ONETIME ONE Stop: 07/21/18 21:06 Last Admin: 07/21/18 22:02 Dose: 100 ml Metoclopramide HCl (Reglan) 10 mg IVPUSH ONETIME ONE Stop: 07/21/18 23:40 Last Admin: 07/22/18 00:42 Dose: 10 mg Ondansetron HCl (Zofran) 4 mg IVPUSH ONETIME ONE Stop: 07/21/18 20:47 Last Admin: 07/21/18 21:20 Dose: 4 mg - Exam General: Reports: Alert, Oriented HEENT: Reports: Pupils Equal, Pupils Reactive, EOMI, Mucous Membr. Moist/[place] Neck: Reports: Supple Lungs: Reports: Clear to Auscultation, Normal Respiratory Effort Cardiovascular: Reports: Regular Rate, Regular Rhythm GI/Abdominal Exam: Normal Bowel Sounds, Soft, Non-Tender, No Distention, Rebound Back Exam: Reports: Normal Inspection, Full Range of Motion Extremities: Normal Inspection, Normal Range of Motion
== END 2018-07-24 16:00 | disposition home or self-care (01) | DRG 390 ==
LOC: VM.ED 20:12 → VM.MS 22:48
PROVIDERS: ADMIT Family Medicine; ATTEND Family Medicine
DX: K56.600 Partial intestinal obstruction, unspecified as to cause (principal); N18.3 Chronic kidney disease, stage 3 (moderate); K59.09 Other constipation; E78.5 Hyperlipidemia, unspecified; I12.9 Hypertensive chronic kidney disease with stage 1 through stage 4 chronic kidney disease, or unspecified chronic kidney disease; M54.9 Dorsalgia, unspecified; G89.29 Other chronic pain; G47.33 Obstructive sleep apnea (adult) (pediatric); D53.9 Nutritional anemia, unspecified; I35.0 Nonrheumatic aortic (valve) stenosis; M19.91 Primary osteoarthritis, unspecified site; Z87.891 Personal history of nicotine dependence; Z88.8 Allergy status to other drugs, medicaments and biological substances; Z79.82 Long term (current) use of aspirin; Z90.79 Acquired absence of other genital organ(s)
CPT/HCPCS: 36415; 74177; 80048; 80053; 82150; 82607; 82746; 83540; 83550; 83880; 84443; 85025; 96361; 96374; 99284-GF; 99285-25; A9270-GY; J1650; J2405; J2765; J7120; Q9967

== ENCOUNTER 2019-08-21 05:08 | Emergency (ER) | payer MEDICARE, OTHER ==
--- NOTE | 2019-08-21 05:19 | EDM.PDOC ---
ED HPI GENERAL MEDICAL PROBLEM - General Chief Complaint: Trauma Stated Complaint: trauma Time Seen by Provider: 08/21/19 05:09 Source of Information: Reports: Patient, EMS, Family History Limitations: Reports: No Limitations - History of Present Illness INITIAL COMMENTS - FREE TEXT/NARRATIVE: Patient presents to ER after a fall at home. Had gotten up to the bathroom, was lightheaded after rising from the toilet and fell. Recalls "a loud thump from hitting the floor" but not much else. Has had previous syncopal episodes like that in the past but have been much improved. She is currently on Plavix. Had a stent put in about a week ago. She had been having weeks of "just not feeling right" and then noted more fatigue and swelling in her legs. Subsequently she had an angiogram and found an area of blockage, requiring the stent. Was feeling good until yesterday, felt a little nauseated last evening. At present, admits to head pain as she did sustain a large hematoma to the frontal area of her scalp. No neck pain, has chronic back pain. No chest discomfort or shortness of breath. No nausea or abdominal pain at present. EKG per EMS shows NSR without ischemia GCS on arrival to ER 15 Onset: Today, Sudden Duration: Minutes: Location: Reports: Head Quality: Reports: Ache, Sharp Severity: Severe Improves with: Reports: Cold Therapy Context: Reports: Trauma Associated Symptoms: Reports: Headaches, Nausea/Vomiting, Syncope. 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 - Related Data Allergies Allergy/AdvReac Type Severity Reaction Status Date / Time atorvastatin calcium AdvReac Muscle Verified 08/21/19 05:25 [From Lipitor] Aches pregabalin [From Lyrica] AdvReac Swelling Verified 08/21/19 05:25 Home Meds: Home Meds Aspirin [Halfprin] 81 mg PO DAILY 09/11/13 [History] Calcium Carb, Citrate/Vit D3 [Calcium + D3 ER Tablet] 1 each PO BID 09/11/13 [ History] DULoxetine [Cymbalta] 1 tab PO DAILY 09/11/13 [History] Multivitamin [Multi-Vitamin Daily] 1 each PO DAILY 09/11/13 [History] Oxybutynin Chloride [Ditropan Xl] 5 mg PO WITHLUNCH 09/11/13 [History] Vitamin E 400 unit PO DAILY 09/11/13 [History] fentaNYL [Fentanyl] 50 mcg TD Q48H 05/29/14 [History] Metoprolol Succinate [Toprol XL] 25 mg PO DAILY #30 tab.er 06/16/14 [Rx] Cholecalciferol (Vitamin D3) [Vitamin D3] 400 units PO BID 01/14/15 [History] Furosemide 20 mg PO DAILY PRN 01/14/15 [History] Hydrocodone/Acetaminophen [Hydrocodone-Acetamin 10-325 mg] 1 tab PO Q4H PRN 10/21 [History] Hydroxychloroquine Sulfate [Plaquenil] 200 mg PO BID 01/14/15 [History] predniSONE [Shakila] 4 mg PO DAILY 01/14/15 [History] Gabapentin [Neurontin] 100 mg PO DAILY@1200 cap 01/25/15 [Rx] Acetaminophen 1 - 2 tab PO Q3H PRN 12/10/16 [History] Baclofen 1 tab PO ASDIRECTED 12/10/16 [History] Baclofen 1 tab PO WITHBREAKFAST 12/10/16 [History] Baclofen 1.5 tab PO BEDTIME 12/10/16 [History] DULoxetine HCl [Duloxetine HCl] 1 tab PO DAILY 12/10/16 [History] Gabapentin [Neurontin] 200 mg PO BEDTIME 12/10/16 [History] Gabapentin [Neurontin] 200 mg PO QAM 12/10/16 [History] Nystatin 1 each TOP BID PRN 12/10/16 [History] Clopidogrel [Plavix] 75 mg PO DAILY 08/21/19 [History] Denosumab [Prolia] 60 mg SQ ASDIRECTED 08/21/19 [History] Rosuvastatin [Crestor] 5 mg PO DAILY 08/21/19 [History] Past Medical History Cardiovascular History: Reports: Other (See Below) Other Cardiovascular History: 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 fire prevention specialist and being worked up for aortic stenosis Gastrointestinal History: Reports: Bowel Obstruction, Chronic Constipation Genitourinary History: Reports: Renal Disease Other Genitourinary History: stage 3 kidney disease 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 Review of Systems - Review of Systems Review Of Systems: See Below Constitutional: Reports: Weakness Eyes: Denies: Blurred Vision, Photophobia, Vision Change Ears: Denies: Dizziness, Pain, Bloody Discharge Nose: Denies: Epistaxis Mouth/Throat: Denies: Bleeding, Lip Swelling, Tongue Swelling, Difficulty Swallowing Respiratory: Denies: Shortness of Breath, Cough Cardiovascular: Reports: Edema, Lightheadedness. Denies: Chest Pain, Palpitations GI/Abdominal: Reports: Nausea. Denies: Abdominal Pain, Vomiting Genitourinary: Reports: No Symptoms Musculoskeletal: Reports: Back Pain (chronic in nature) Skin: Reports: Bruising (hematoma to forehead) Neurological: Reports: Headache, Weakness ED EXAM, GENERAL - Physical Exam Exam: See Below Free Text/Narrative:: Patient presents per EMS after a fall. Is on Plavix Primary survey Alert and oriented, answers questions appropriately. Airway patient Lung sounds clear, regular S1S2 with audible murmur Abdomen soft, no pelvic pain with palpation Exam Limited By: No Limitations General Appearance: Alert, WD/WN, Mild Distress Eye Exam: Bilateral Eye: EOMI, PERRL Ears: Normal External Exam, Normal TMs Nose: Normal Inspection, Normal Mucosa, No Blood Throat/Mouth: Normal Inspection, Normal Oropharynx Head: Normocephalic, Other (large hematoma to right frontal scalp/forehead region; tender) Neck: Normal Inspection, Supple, Non-Tender Respiratory/Chest: No Respiratory Distress, Lungs Clear, Normal Breath Sounds Cardiovascular: Regular Rate, Rhythm, Systolic Murmur GI/Abdominal: Normal Bowel Sounds, Soft, Non-Tender Back Exam: Normal Inspection, Full Range of Motion Extremities: Normal Inspection, Pedal Edema (trace) Neurological: Alert, Oriented, CN II-XII Intact, Normal Cognition, No Motor/ Sensory Deficits Psychiatric: Anxious Skin Exam: Warm, Dry Course - Orders/Labs/Meds Orders: Active Orders 24 hr Category Date Time Status Head wo Cont [CT] Stat Exams 08/21/19 05:12 Ordered UA RFX MIGNON AND CULT IF INDIC [URIN] Stat Lab 08/21/19 05:12 Ordered Labs: Laboratory Tests 08/21/19 08/21/19 Range/Units 05:17 05:17 WBC 7.5 (4.0-10.0) x10^3/uL RBC 3.48 L (4.00-5.50) x10^6/uL Hgb 10.7 L (12.0-16.0) g/dL Hct 33.4 (33.0-47.0) % MCV 96.0 H (78.0-93.0) fL MCH 30.7 (26.0-32.0) pg MCHC 32.0 (32.0-36.0) g/dL RDW Coeff of Isaura 13.5 (10.0-15.0) % Plt Count 160 (130-400) x10^3/uL Neut % (Auto) 60.3 (50.0-80.0) % Lymph % (Auto) 25.2 (25.0-50.0) % [place] % (Auto) 11.1 H (2.0-11.0) % Eos % (Auto) 3.1 (0.0-4.0) % Baso % (Auto) 0.3 (0.2-1.2) % Sodium 140 (136-145) mmol/L Potassium 3.7 (3.5-5.1) mmol/L Chloride 102 (98-107) mmol/L Carbon Dioxide 30 (21-32) mmol/L Anion Gap 11.7 (10-20) mmol/L BUN 51 H D (7-18) mg/dL Creatinine 1.6 H (0.55-1.02) mg/dL Est Cr Clr Drug Dosing TNP Estimated GFR (MDRD) 32 Glucose 129 H (74-106) mg/dL Calcium 8.8 (8.5-10.1) mg/dL Corrected Calcium 9.12 (8.5-10.1) mg/dL Total Bilirubin 0.2 (0.2-1.0) mg/dL AST 33 (15-37) U/L ALT 48 (14-59) U/L Alkaline Phosphatase 66 (46-116) U/L Lactate Dehydrogenase 248 H (81-234) U/L Creatine Kinase 138 (26-192) U/L Troponin I < 0.017 (<=0.056) ng/mL Total Protein 7.9 (6.4-8.2) g/dL Albumin 3.6 (3.4-5.0) g/dL Globulin 4.3 Albumin/Globulin Ratio 0.84 - Re-Assessments/Exams Free Text/Narrative Re-Assessment/Exam: 08/21/19 06:00 Labs are all normal, creatinine stable as relates has CKD stage III. CT scan of head is negative. Patient up to commode for urine but unable to void. Did well with transfer with slow movements. Discussed home safety, does feel she will be okay. Granddaughter will stay with her today. Departure - Departure Time of Disposition: 06:02 Disposition: Home, Self-Care 01 Condition: Fair Clinical Impression: Vasovagal near syncope Hematoma of frontal scalp Qualifiers: Encounter type: initial encounter Qualified Code(s): S00.03XA - Contusion of scalp, initial encounter - Discharge Information *PRESCRIPTION DRUG MONITORING PROGRAM REVIEWED*: No *COPY OF PRESCRIPTION DRUG MONITORING REPORT IN PATIENT IVETT: No Instructions: How to Use Cold Therapy, [id number], Near-Syncope Forms: ED Department Discharge Additional Instructions: 1. Rest 2. Push fluids 3. Slow cautious movements today 4. Ice to forehead frequently 5. Tylenol for headache/discomfort 6. Follow up if any changes or concerns. - My Orders Last 24 Hours: My Active Orders 08/21/19 05:12 Head wo Cont [CT] Stat UA RFX MIGNON AND CULT IF INDIC [URIN] Stat - Assessment/Plan Last 24 Hours: My Active Orders 08/21/19 05:12 Head wo Cont [CT] Stat UA RFX MIGNON AND CULT IF INDIC [URIN] Stat
[2019-08-21 05:45] LABS: ANION GAP 11.7 mmol/L (10-20); CHLORIDE,CL 102 mmol/L (98-107); SODIUM,NA 140 mmol/L (136-145)
--- NOTE | 2019-08-21 08:31 | CT ---
[id number] CT/CT Head WO IV EXAM: NONCONTRAST HEAD CT INDICATION: TRAUMA COMPARISON: None. DISCUSSION: Right anterior scalp hematoma. There is mild generalized atrophy. The puri and white matter are normal in attenuation. No mass effect or midline shift. No acute hemorrhage or extra-axial fluid collection. No acute territorial infarct is identified. A limited look at the orbits and paranasal sinuses is unremarkable. IMPRESSION: 1. No evidence of acute intracranial trauma. 2. Right frontal scalp hematoma. Tee Simpson MD 08/21/19 0829 Thank you for allowing us to participate in the care of your patient.
== END 2019-08-21 06:15 | disposition home or self-care (01) ==
LOC: VM.ED 05:08
DX: R55 Syncope and collapse (principal); S00.03XA Contusion of scalp, initial encounter; Z79.02 Long term (current) use of antithrombotics/antiplatelets; Z88.8 Allergy status to other drugs, medicaments and biological substances; Z79.82 Long term (current) use of aspirin; Z79.899 Other long term (current) drug therapy; W18.30XA Fall on same level, unspecified, initial encounter; Y92.009 Unspecified place in unspecified non-institutional (private) residence as the place of occurrence of the external cause
CPT/HCPCS: 36415; 70450; 80053; 82550; 83615; 84484; 85025; 99284-25; 99284-GF

== ENCOUNTER 2019-08-25 16:49 | Observation (INO) | payer MEDICARE, OTHER ==
[2019-08-25] MEDS ORDERED: Sodium Chloride 0.9% 10 ML Syringe FLUSH PRN (17:21)
[2019-08-25] MEDS ORDERED: Nitroglycerin 0.4 MG Tab.SL SL ONE (17:22)
--- NOTE | 2019-08-25 17:23 | EDM.PDOC ---
ED HPI GENERAL MEDICAL PROBLEM - General Chief Complaint: Chest Pain Stated Complaint: CHEST PAIN Time Seen by Provider: 08/25/19 17:10 Source of Information: Reports: Patient History Limitations: Reports: No Limitations - History of Present Illness INITIAL COMMENTS - FREE TEXT/NARRATIVE: Patient comes into the emergency department with complaints of chest pain. Patient states that it started approximately 1 hour and 20 minutes prior to arrival to the emergency department. Patient states that she describes it as a tight band around her midsection. She denies it radiating to either shoulder or groin. She states that it is sharp shooting and constricting and feeling.She states that she did feel nauseated when the symptoms started as well as did have 2 belching episodes. Which she does normally not have any belching. She denies any burning or acid indigestion symptoms. Patient did just recently have a stent placed 2 weeks ago and was started on plavix. She did have a significant fall with facial injuries one week ago. Patient states she did take a baby Aspirin and her Plavix this morning as normal. Patient has not had much of an appetite since she fell But has slowly been getting better according to her and her son who is present with her at the bedside.Patient was trying to eat some ice cream when she began to have the sudden onset of constricting band around her entire chest. patient denies being ill with fever or any Covid-19 symptoms. Patient does have chronic back pain and is prescribed multiple medication regimens to help with the back pain including a fentanyl patch that she has on. She is also on oral as needed medications and daily medications to help control her symptoms. 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 - Related Data Allergies Allergy/AdvReac Type Severity Reaction Status Date / Time atorvastatin calcium AdvReac Muscle Verified 08/21/19 05:25 [From Lipitor] Aches pregabalin [From Lyrica] AdvReac Swelling Verified 08/21/19 05:25 Home Meds: Home Meds Aspirin [Halfprin] 81 mg PO DAILY 09/11/13 [History] Calcium Carb, Citrate/Vit D3 [Calcium + D3 ER Tablet] 1 each PO BID 09/11/13 [History] DULoxetine [Cymbalta] 1 tab PO DAILY 09/11/13 [History] Multivitamin [Multi-Vitamin Daily] 1 each PO DAILY 09/11/13 [History] Oxybutynin Chloride [Ditropan Xl] 5 mg PO WITHLUNCH 09/11/13 [History] Vitamin E 400 unit PO DAILY 09/11/13 [History] fentaNYL [Fentanyl] 75 mcg TD Q48H 05/29/14 [History] Metoprolol Succinate [Toprol XL] 25 mg PO DAILY #30 tab.er 06/16/14 [Rx] Cholecalciferol (Vitamin D3) [Vitamin D3] 400 units PO BID 01/14/15 [History] Furosemide 60 mg PO DAILY PRN 01/14/15 [History] Hydrocodone/Acetaminophen [Hydrocodone-Acetamin 10-325 mg] 1 tab PO Q6H PRN 01/14/15 [History] Hydroxychloroquine Sulfate [Plaquenil] 200 mg PO BID 01/14/15 [History] predniSONE [Shakila] 3 mg PO DAILY 01/14/15 [History] Gabapentin [Neurontin] 100 mg PO DAILY@1200 cap 01/25/15 [Rx] Acetaminophen 1 - 2 tab PO Q3H PRN 12/10/16 [History] Baclofen 1 tab PO ASDIRECTED 12/10/16 [History] Baclofen 1 tab PO WITHBREAKFAST 12/10/16 [History] Baclofen 1.5 tab PO BEDTIME 12/10/16 [History] DULoxetine HCl [Duloxetine HCl] 1 tab PO DAILY 12/10/16 [History] Gabapentin [Neurontin] 200 mg PO BEDTIME 12/10/16 [History] Gabapentin [Neurontin] 200 mg PO QAM 12/10/16 [History] Nystatin 1 each TOP BID PRN 12/10/16 [History] Clopidogrel [Plavix] 75 mg PO DAILY 08/21/19 [History] Denosumab [Prolia] 60 mg SQ ASDIRECTED 08/21/19 [History] Rosuvastatin [Crestor] 5 mg PO DAILY 08/21/19 [History] Past Medical History Cardiovascular History: Reports: Other (See Below) Other Cardiovascular History: 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 scrap 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 and being worked up for aortic stenosis Gastrointestinal History: Reports: Bowel Obstruction, Chronic Constipation Genitourinary History: Reports: Renal Disease Other Genitourinary History: 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 ED ROS GENERAL - Review of Systems Review Of Systems: Comprehensive ROS is negative, except as noted in HPI. Constitutional: Reports: No Symptoms HEENT: Reports: No Symptoms Respiratory: Reports: No Symptoms Endocrine: Reports: No Symptoms GI/Abdominal: Reports: No Symptoms : Reports: No Symptoms Musculoskeletal: Reports: No Symptoms Skin: Reports: No Symptoms Neurological: Reports: No Symptoms Psychiatric: Reports: No Symptoms Hematologic/Lymphatic: Reports: No Symptoms ED EXAM, GENERAL - Physical Exam Exam: See Below Exam Limited By: No Limitations General Appearance: Alert, WD/WN, Mild Distress Eye Exam: Bilateral Eye: EOMI, PERRL, Other (bilateral bruising around both eyes- healing stage (yellow in color bruising noted) ) Nose: Normal Inspection, Normal Mucosa, No Blood Throat/Mouth: Normal Inspection, Normal Lips, Normal Teeth, Normal Voice Head: Atraumatic, Normocephalic Neck: Normal Inspection, Supple, Non-Tender, Full Range of Motion Respiratory/Chest: No Respiratory Distress, Lungs Clear, Normal Breath Sounds, No Accessory Muscle Use, Chest Non-Tender Cardiovascular: Normal Peripheral Pulses, Regular Rate, Rhythm, No Edema, No Gallop, No Murmur GI/Abdominal: Normal Bowel Sounds, Soft, Non-Tender, No Organomegaly, No Distention, No Abnormal Bruit Back Exam: Normal Inspection, Full Range of Motion Extremities: Normal Range of Motion, No Pedal Edema, Normal Capillary Refill, Other (Right arm healing bruise from fall last week. ) Neurological: Alert, Oriented, Normal Cognition Psychiatric: Normal Affect, Normal Mood Skin Exam: Warm, Dry, Intact, Normal Color Course - Vital Signs Last Recorded V/S: Last Vital Signs Temp Pulse Resp BP 190/86 H 08/25/19 17:42 Pulse Ox - Orders/Labs/Meds Orders: Active Orders 24 hr Category Date Time Status Admission Status [Patient Status] [ADT] Routine ADT 08/25/19 19:19 Ordered Cardiac Monitoring [RC] . DIRECTED Care 08/25/19 17:22 Active Cardiac Monitoring [RC] . DIRECTED Care 08/25/19 19:19 Ordered EKG Documentation Completion [RC] STAT Care 08/25/19 17:21 Active Sodium Chloride 0.9% [Saline Flush] Med 08/25/19 17:21 Active 10 ml FLUSH ASDIRECTED PRN Peripheral IV Insertion Adult [OM.PC] Stat Oth 08/25/19 17:21 Ordered Medication Orders Sodium Chloride (Saline Flush) 10 ml FLUSH ASDIRECTED PRN PRN Reason: Keep Vein Open Labs: Laboratory Tests 08/25/19 08/25/19 08/25/19 Range/Units 17:28 17:28 17:28 WBC 7.7 (4.0-10.0) x10^3/uL RBC 4.02 (4.00-5.50) x10^6/uL Hgb 12.2 D (12.0-16.0) g/dL Hct 37.6 (33.0-47.0) % MCV 93.5 H (78.0-93.0) fL MCH 30.3 (26.0-32.0) pg MCHC 32.4 (32.0-36.0) g/dL RDW Coeff of Isaura 13.2 (10.0-15.0) % Plt Count 159 (130-400) x10^3/uL Neut % (Auto) 71.0 (50.0-80.0) % Lymph % (Auto) 19.5 L (25.0-50.0) % [place] % (Auto) 7.6 (2.0-11.0) % Eos % (Auto) 1.8 (0.0-4.0) % Baso % (Auto) 0.1 L (0.2-1.2) % PT 9.9 (9.5-12.3) SEC INR 0.9 L (2.0-3.5) Sodium 140 (136-145) mmol/L Potassium 4.0 (3.5-5.1) mmol/L Chloride 102 (98-107) mmol/L Carbon Dioxide 31 (21-32) mmol/L Anion Gap 11.0 (10-20) mmol/L BUN 16 D (7-18) mg/dL Creatinine 1.2 H (0.55-1.02) mg/dL Est Cr Clr Drug Dosing TNP Estimated GFR (MDRD) 44 Glucose 116 H (74-106) mg/dL Calcium 9.0 (8.5-10.1) mg/dL Corrected Calcium 9.16 (8.5-10.1) mg/dL Total Bilirubin 0.3 (0.2-1.0) mg/dL AST 34 (15-37) U/L ALT 36 (14-59) U/L Alkaline Phosphatase 67 (46-116) U/L Creatine Kinase 111 (26-192) U/L Troponin I < 0.017 (<=0.056) ng/mL NT-Pro-B Natriuret Pep 487 H (<=125) pg/mL Total Protein 8.4 H (6.4-8.2) g/dL Albumin 3.8 (3.4-5.0) g/dL Globulin 4.6 Albumin/Globulin Ratio 0.83 Meds: Medications Generic Name Dose Route Start Last Admin Trade Name Freq PRN Reason Stop Dose Admin Sodium Chloride 10 ml 08/25/19 17:21 Saline Flush FLUSH ASDIRECTED PRN Keep Vein Open Discontinued Medications Generic Name Dose Route Start Last Admin Trade Name Freq PRN Reason Stop Dose Admin Al Hydroxide/Mg Hydroxide 30 ml 08/25/19 17:49 08/25/19 17:57 Gi Cocktail PO 08/25/19 17:50 30 ml ONETIME ONE Administration Nitroglycerin 0.4 mg 08/25/19 17:22 08/25/19 17:42 Nitrostat SL 08/25/19 17:23 0.4 mg ONETIME ONE Administration Departure - Departure Time of Disposition: 19:20 Disposition: Refer to Observation Condition: Good Clinical Impression: Chest pain Qualifiers: Chest pain type: unspecified Qualified Code(s): R07.9 - Chest pain, unspecified - Discharge Information *PRESCRIPTION DRUG MONITORING PROGRAM REVIEWED*: Not Applicable *COPY OF PRESCRIPTION DRUG MONITORING REPORT IN PATIENT IVETT: Not Applicable Referrals: Praveena Rosario DO [Primary Care Provider] - Sepsis Event Note (ED) - Focused Exam Vital Signs: Vital Signs BP 08/25/19 17:42 190/86 H - My Orders Last 24 Hours: My Active Orders 08/25/19 17:21 EKG Documentation Completion [RC] STAT Sodium Chloride 0.9% [Saline Flush] 10 ml FLUSH ASDIRECTED PRN Peripheral IV Insertion Adult [OM.PC] Stat 08/25/19 17:22 Cardiac Monitoring [RC] . DIRECTED 08/25/19 19:19 Admission Status [Patient Status] [ADT] Routine Cardiac Monitoring [RC] . DIRECTED - Assessment/Plan Admission H&P: Please use this note as an admission H&P Last 24 Hours: My Active Orders 08/25/19 17:21 EKG Documentation Completion [RC] STAT Sodium Chloride 0.9% [Saline Flush] 10 ml FLUSH ASDIRECTED PRN Peripheral IV Insertion Adult [OM.PC] Stat 08/25/19 17:22 Cardiac Monitoring [RC] . DIRECTED 08/25/19 19:19 Admission Status [Patient Status] [ADT] Routine Cardiac Monitoring [RC] . DIRECTED Assessment:: 1. chest pain Plan: 1. Labs completed in the ER. Results reviewed with the patient 2. IV initiated in the emergency department 3. Nitro sublingual given with no relief noted 4. Chest xray completed in ER. Results reviewed with the patient 5. ASA 81mg taken at home this am and patient is on plavix daily and took today dose 6. EKG x 2 was completed in ER. Results reviewed with the patient 7. Patient and nursing staff was updated regarding the plan of care 8. GI cocktail completed with no relief initially but then stated it may have helped minimally 9. Consultation completed with [facility] who stated at this time they would continue to monitor enzymes and monitor symptoms. They feel at the present time if comfortable patient can be admitted observation and monitored. 10. Family and patient updated with the plan of care and agreeable 11. Plan will be to admit to observation status, code level 1, normal diet, up with assistance, home medication as prescribed, and cardiac enzymes trending.
[2019-08-25] MEDS ORDERED: GI Cocktail Oral Solution 30 ML PO ONE (17:49)
[2019-08-25 17:56] LABS: CHLORIDE,CL 102 mmol/L (98-107); SODIUM,NA 140 mmol/L (136-145)
--- NOTE | 2019-08-25 18:10 | CR ---
[id number] RAD/RAD Chest PA or AP 1V EXAM: FRONTAL CHEST INDICATION: Chest pain. COMPARISON: July 25, 2019. DISCUSSION: Mild linear scarring or atelectasis in the lung bases has not appreciably changed. No definite infiltrates. Normal heart size. Cervical spine fusion hardware. IMPRESSION: 1. No acute findings. Tee Simpson MD 08/25/19 0046 Thank you for allowing us to participate in the care of your patient.
[2019-08-25] MEDS ORDERED: Ondansetron 4 MG Tab.DIS PO PRN (19:33)
[2019-08-25] MEDS ORDERED: Non-Formulary Medication 1 Each (Nystatin [Nystatin] 1 EACH) TOP PRN (19:37)
[2019-08-25] MEDS ORDERED: Furosemide 40 MG Tab PO PRN (19:37)
[2019-08-25] MEDS ORDERED: Acetaminophen/HYDROcodone 325-10 MG Tab PO PRN (19:37)
[2019-08-25] MEDS ORDERED: Non-Formulary Medication 1 Each (Denosumab [Prolia] 60 MG) SQ SCH (19:45)
[2019-08-25] MEDS ORDERED: Calcium Carbonate/Vitamin D3 1250 MG-200 Unit Tab PO SCH (20:00)
[2019-08-25] MEDS ORDERED: Gabapentin 100 MG Cap PO SCH (20:00)
[2019-08-25] MEDS ORDERED: Baclofen 10 MG Tab PO SCH (20:00)
[2019-08-25] MEDS ORDERED: Hydroxychloroquine 200 MG Tab PO SCH (20:00)
[2019-08-25] MEDS: Acetaminophen 325 MG Tab PO PRN (21:54)
[2019-08-25] MEDS ORDERED: fentaNYL 75 MCG/HR Transdermal Patch TOP SCH (22:00)
[2019-08-25] MEDS: Calcium Carbonate/Vitamin D3 1250 MG-200 Unit Tab PO SCH (22:54)
[2019-08-25] MEDS: Hydroxychloroquine 200 MG Tab PO SCH (22:54)
[2019-08-25] MEDS: Cholecalciferol (Vitamin D3) 10 MCG Tab PO SCH (22:55)
[2019-08-26 05:14] VITALS: BP 146/58; PULSE 65
[2019-08-26] MEDS ORDERED: Metoprolol Succinate 25 MG Tab.ER PO SCH ×2 (08:00→12:00)
[2019-08-26] MEDS ORDERED: Aspirin 81 MG Tab.EC PO SCH ×2 (08:00)
[2019-08-26] MEDS ORDERED: Clopidogrel 75 MG Tab PO SCH ×2 (08:00→09:30)
[2019-08-26] MEDS ORDERED: Multivitamin, Stress Formula with Zinc Tab PO SCH (08:00)
[2019-08-26] MEDS ORDERED: Gabapentin 100 MG Cap PO SCH ×3 (08:00→12:00)
[2019-08-26] MEDS ORDERED: predniSONE 1 MG Tab PO SCH ×2 (08:00→09:30)
[2019-08-26] MEDS ORDERED: DULoxetine 60 MG Cap PO SCH (08:00)
[2019-08-26] MEDS ORDERED: Baclofen 10 MG Tab PO SCH ×3 (08:00→14:00)
[2019-08-26] MEDS ORDERED: Vitamin E (dl-alpha-tocopherol acetate) 400 Unit Cap PO SCH ×2 (08:00→20:00)
[2019-08-26] MEDS ORDERED: DULoxetine 30 MG Cap PO SCH (08:00)
[2019-08-26] MEDS: Acetaminophen 325 MG Tab PO PRN (08:56)
--- NOTE | 2019-08-26 09:31 | PCM.DCSUM1 ---
Discharge Summary - Hospital Course HPI Initial Comments: Patient was admitted to the hospital late last evening after coming into the ER with unspecific chest pain. Patient recently had a stent placed in the RCA about 2 weeks ago and placed on plavix. Then 1 week ago pt sustained a significant fall with injuries as well. Cardiology was contacted due to the patients recent procedure and future valve replacement within 3 weeks. Cardiology suggested following cardiac labs and contact them if they do become positive. Patient continues to have unspecific pain and states it is more palpable now and around the vertebral column. She states the chest pressure is getting better but not gone. she did not feel the nitroglycerin or GI cocktail helped. She ate supper without difficulty and states she slept alright but not the best with the hospital atmosphere. Patient has no other concerns or complaints and states she is ready for discharge. Diagnosis: Stroke: No Modified Con Scale: No Symptoms at All Modified Hayes Scale Score: 0 - Discharge Data Discharge Date: 08/26/19 Discharge Disposition: Home, Self-Care 01 Condition: Good - Referral to Home Health Primary Care Physician: Praveena Rosario, DO - Discharge Diagnosis/Problem(s) (1) Chest pain SNOMED Code(s): 43200905 ICD Code: R07.9 - CHEST PAIN, UNSPECIFIED Status: Acute Current Visit: Yes Qualifiers: Chest pain type: unspecified Qualified Code(s): R07.9 - Chest pain, unspecified (2) Backache SNOMED Code(s): 603383944 ICD Code: M54.9 - DORSALGIA, UNSPECIFIED Status: Acute Current Visit: No - Patient Instructions Diet: Heart Healthy Diet Activity: Apply Ice, As Tolerated, Rest and Relax Today Driving: May Drive Today Showering/Bathing: May Shower - Discharge Plan *PRESCRIPTION DRUG MONITORING PROGRAM REVIEWED*: Not Applicable *COPY OF PRESCRIPTION DRUG MONITORING REPORT IN PATIENT IVETT: Not Applicable Home Medications: Home Meds Aspirin [Halfprin] 81 mg PO DAILY 09/11/13 [History] Calcium Carb, Citrate/Vit D3 [Calcium + D3 ER Tablet] 1 each PO BID 09/11/13 [History] DULoxetine [Cymbalta] 90 mg PO DAILY 09/11/13 [History] Multivitamin [Multi-Vitamin Daily] 1 each PO DAILY 09/11/13 [History] Oxybutynin Chloride [Ditropan Xl] 5 mg PO WITHLUNCH 09/11/13 [History] Vitamin E 400 unit PO DAILY 09/11/13 [History] fentaNYL [Fentanyl] 75 mcg TD Q48H 05/29/14 [History] Metoprolol Succinate [Toprol XL] 25 mg PO DAILY #30 tab.er 06/16/14 [Rx] Cholecalciferol (Vitamin D3) [Vitamin D3] 400 units PO BID 01/14/15 [History] Furosemide 60 mg PO DAILY PRN 01/14/15 [History] Hydrocodone/Acetaminophen [Hydrocodone-Acetamin 10-325 mg] 1 tab PO Q6H PRN 01/14/15 [History] Hydroxychloroquine Sulfate [Plaquenil] 200 mg PO BID 01/14/15 [History] predniSONE [Shakila] 3 mg PO DAILY 01/14/15 [History] Gabapentin [Neurontin] 100 mg PO DAILY@1200 cap 01/25/15 [Rx] Acetaminophen 1 - 2 tab PO Q3H PRN 12/10/16 [History] Baclofen 1.5 tab PO BEDTIME 12/10/16 [History] Baclofen 10 mg PO ,14 12/10/16 [History] Nystatin 1 each TOP BID PRN 12/10/16 [History] Clopidogrel [Plavix] 75 mg PO DAILY 08/21/19 [History] Denosumab [Prolia] 60 mg SQ ASDIRECTED 08/21/19 [History] Rosuvastatin [Crestor] 5 mg PO DAILY 08/21/19 [History] Gabapentin [Neurontin] 200 mg PO BID 08/26/19 [History] Oxygen Therapy Mode: Room Air Patient Handouts: Nonspecific Chest Pain, Adult, [id number], Back Injury Prevention, [id number], Acute Back Pain, Adult Referrals: Praveena Rosario DO [Primary Care Provider] - - Discharge Summary/Plan Comment DC Time >30 min.: No - General Info Date of Service: 08/26/19 Functional Status: Reports: Pain Controlled, Tolerating Diet, Ambulating - Review of Systems General: Reports: No Symptoms HEENT: Reports: No Symptoms Pulmonary: Reports: No Symptoms, Pleuritic Chest Pain Cardiovascular: Reports: No Symptoms Gastrointestinal: Reports: No Symptoms Genitourinary: Reports: No Symptoms Musculoskeletal: Reports: Back Pain Skin: Reports: No Symptoms Neurological: Reports: No Symptoms Psychiatric: Reports: No Symptoms - Patient Data Vitals - Most Recent: Last Vital Signs Temp 36.4 C 08/26/19 05:12 Pulse 65 08/26/19 05:12 Resp 17 08/26/19 05:12 BP 146/58 H 08/26/19 05:12 Pulse Ox 95 08/26/19 05:12 Weight - Most Recent: 96.417 kg I&O - Last 24 hours: Intake & Output 08/25/19 08/26/19 08/26/19 22:59 06:59 14:59 Intake Total 240 360 Output Total 1000 Balance 240 -1000 360 Lab Results - Last 24 hrs: Laboratory Results - last 24 hr 08/25/19 08/25/19 08/25/19 Range/Units 17:28 17:28 17:28 WBC 7.7 (4.0-10.0) x10^3/uL RBC 4.02 (4.00-5.50) x10^6/uL Hgb 12.2 D (12.0-16.0) g/dL Hct 37.6 (33.0-47.0) % MCV 93.5 H (78.0-93.0) fL MCH 30.3 (26.0-32.0) pg MCHC 32.4 (32.0-36.0) g/dL RDW Coeff of Isaura 13.2 (10.0-15.0) % Plt Count 159 (130-400) x10^3/uL Neut % (Auto) 71.0 (50.0-80.0) % Lymph % (Auto) 19.5 L (25.0-50.0) % Centre % (Auto) 7.6 (2.0-11.0) % Eos % (Auto) 1.8 (0.0-4.0) % Baso % (Auto) 0.1 L (0.2-1.2) % PT 9.9 (9.5-12.3) SEC INR 0.9 L (2.0-3.5) Sodium 140 (136-145) mmol/L Potassium 4.0 (3.5-5.1) mmol/L Chloride 102 (98-107) mmol/L Carbon Dioxide 31 (21-32) mmol/L Anion Gap 11.0 (10-20) mmol/L BUN 16 D (7-18) mg/dL Creatinine 1.2 H (0.55-1.02) mg/dL Est Cr Clr Drug Dosing TNP Estimated GFR (MDRD) 44 Glucose 116 H (74-106) mg/dL Calcium 9.0 (8.5-10.1) mg/dL Corrected Calcium 9.16 (8.5-10.1) mg/dL Total Bilirubin 0.3 (0.2-1.0) mg/dL AST 34 (15-37) U/L ALT 36 (14-59) U/L Alkaline Phosphatase 67 (46-116) U/L Creatine Kinase 111 (26-192) U/L Troponin I < 0.017 (<=0.056) ng/mL NT-Pro-B Natriuret Pep 487 H (<=125) pg/mL Total Protein 8.4 H (6.4-8.2) g/dL Albumin 3.8 (3.4-5.0) g/dL Globulin 4.6 Albumin/Globulin Ratio 0.83 08/25/19 08/26/19 08/26/19 Range/Units 23:30 06:40 06:40 WBC 7.2 (4.0-10.0) x10^3/uL RBC 3.33 L (4.00-5.50) x10^6/uL Hgb 10.2 L D (12.0-16.0) g/dL Hct 31.9 L (33.0-47.0) % MCV 95.8 H (78.0-93.0) fL MCH 30.6 (26.0-32.0) pg MCHC 32.0 (32.0-36.0) g/dL RDW Coeff of Isaura 13.3 (10.0-15.0) % Plt Count 138 (130-400) x10^3/uL Neut % (Auto) 61.8 (50.0-80.0) % Lymph % (Auto) 26.7 (25.0-50.0) % Centre % (Auto) 8.9 (2.0-11.0) % Eos % (Auto) 2.5 (0.0-4.0) % Baso % (Auto) 0.1 L (0.2-1.2) % PT (9.5-12.3) SEC INR (2.0-3.5) Sodium (136-145) mmol/L Potassium (3.5-5.1) mmol/L Chloride (98-107) mmol/L Carbon Dioxide (21-32) mmol/L Anion Gap (10-20) mmol/L BUN (7-18) mg/dL Creatinine (0.55-1.02) mg/dL Est Cr Clr Drug Dosing Estimated GFR (MDRD) Glucose (74-106) mg/dL Calcium (8.5-10.1) mg/dL Corrected Calcium (8.5-10.1) mg/dL Total Bilirubin (0.2-1.0) mg/dL AST (15-37) U/L ALT (14-59) U/L Alkaline Phosphatase (46-116) U/L Creatine Kinase (26-192) U/L Troponin I < 0.017 < 0.017 (<=0.056) ng/mL NT-Pro-B Natriuret Pep (<=125) pg/mL Total Protein (6.4-8.2) g/dL Albumin (3.4-5.0) g/dL Globulin Albumin/Globulin Ratio Med Orders - Current: Current Medications Acetaminophen (Tylenol) 325 - 650 mg PO Q3H PRN PRN Reason: Pain Last Admin: 08/26/19 08:56 Dose: 650 mg Documented by: Hydrocodone Bitart/Acetaminophen ([place] 325-10 Mg) 1 tab PO Q6H PRN PRN Reason: Pain (moderate 4-6) Last Admin: 08/26/19 04:27 Dose: 1 tab Documented by: Aspirin (Halfprin) 81 mg PO DAILY [facility] Baclofen (Lioresal) 15 mg PO BEDTIME [facility] Last Admin: 08/25/19 22:33 Dose: 15 mg Documented by: Baclofen (Lioresal) 10 mg PO BID@0800,1400 [facility] Calcium Carbonate (Calcium Carbonate/Vitamin D 1250 Mg-200 Unit) 1 tab PO BID [facility] Last Admin: 08/25/19 22:54 Dose: 1 tab Documented by: Cholecalciferol (Vitamin D3) 10 mcg PO BID [facility] Last Admin: 08/25/19 22:55 Dose: 10 mcg Documented by: Clopidogrel Bisulfate (Plavix) 75 mg PO DAILY [facility] Duloxetine HCl (Cymbalta) 90 mg PO DAILY [facility] Fentanyl (Duragesic) 75 mcg TOP Q48H [facility] Last Admin: 08/25/19 21:50 Dose: 75 mcg Documented by: Furosemide (Lasix) 60 mg PO DAILY PRN PRN Reason: Edema Gabapentin (Neurontin) 100 mg PO DAILY@1200 CARLA Gabapentin (Neurontin) 200 mg PO BID [facility] Hydroxychloroquine Sulfate (Plaquenil) 200 mg PO BID [facility] Last Admin: 08/25/19 22:54 Dose: 200 mg Documented by: Metoprolol Succinate (Toprol Xl) 25 mg PO DAILY [facility] Rosuvastatin [ (Crestor] 5 Mg) 0 mg PO DAILY [facility] Ondansetron HCl (Zofran Odt) 4 mg PO Q6H PRN PRN Reason: Nausea/Vomiting Oxybutynin Chloride (Oxybutynin Er) 5 mg PO WITHLUNCH [facility] Prednisone (Prednisone) 3 mg PO DAILY [facility] Sodium Chloride (Saline Flush) 10 ml FLUSH ASDIRECTED PRN PRN Reason: Keep Vein Open Vitamin B Complex/Vit C/Vit E/Zinc (Stress Formula With Zinc) 1 tab PO DAILY [facility] Vitamin E (Vitamin E) 400 units PO DAILY [facility] Discontinued Medications Al Hydroxide/Mg Hydroxide (Gi Cocktail) 30 ml PO ONETIME ONE Stop: 08/25/19 17:50 Last Admin: 08/25/19 17:57 Dose: 30 ml Documented by: Aspirin (Halfprin) 81 mg PO DAILY [facility] Baclofen (Lioresal) 10 mg PO DAILY@1400 [facility] Baclofen (Lioresal) 10 mg PO WITHBREAKFAST [facility] Last Admin: 08/26/19 08:32 Dose: Not Given Documented by: Calcium Carbonate (Calcium Carbonate/Vitamin D 1250 Mg-200 Unit) 1 tab PO BID [facility] Last Admin: 08/26/19 06:04 Dose: Not Given Documented by: Duloxetine HCl (Cymbalta) 30 mg PO DAILY [facility] Last Admin: 08/26/19 08:33 Dose: Not Given Documented by: Duloxetine HCl (Cymbalta) 60 mg PO DAILY [facility] Last Admin: 08/26/19 08:32 Dose: Not Given Documented by: Gabapentin (Neurontin) 200 mg PO QAM [facility] Last Admin: 08/26/19 08:32 Dose: Not Given Documented by: Gabapentin (Neurontin) 200 mg PO BEDTIME [facility] Last Admin: 08/25/19 22:33 Dose: 200 mg Documented by: Hydroxychloroquine Sulfate (Plaquenil) 200 mg PO BID [facility] Last Admin: 08/26/19 06:04 Dose: Not Given Documented by: Nitroglycerin (Nitrostat) 0.4 mg SL ONETIME ONE Stop: 08/25/19 17:23 Last Admin: 08/25/19 17:42 Dose: 0.4 mg Documented by: Non-Formulary Medication (Denosumab [Prolia]) 60 mg SQ ASDIRECTED [facility] Non-Formulary Medication (Nystatin [Nystatin]) 1 each TOP BID PRN PRN Reason: Rash - Exam General: Reports: Alert, Oriented HEENT: Reports: Pupils Equal, Pupils Reactive, EOMI, Mucous Membr. Moist/[place] Neck: Reports: Supple Lungs: Reports: Clear to Auscultation, Normal Respiratory Effort Cardiovascular: Reports: Regular Rate, Regular Rhythm, Murmurs GI/Abdominal Exam: Normal Bowel Sounds, Soft, Non-Tender Back Exam: Reports: Normal Inspection, Full Range of Motion Extremities: Normal Inspection, Normal Range of Motion, Non-Tender, Normal Capillary Refill Skin: Reports: Warm, Dry, Intact, Ecchymosis (healing bilateral eyes and forehead ) Neurological: Reports: No New Focal Deficit Psy/Mental Status: Reports: Alert, Normal Affect, Normal Mood *Q Meaningful Use (DIS) - AMI *Q Aspirin Contraindications AMI *Q: Med/TX Not Indicated/Need
[2019-08-26] MEDS: Hydroxychloroquine 200 MG Tab PO SCH (10:08)
[2019-08-26] MEDS: Calcium Carbonate/Vitamin D3 1250 MG-200 Unit Tab PO SCH (10:41)
[2019-08-26] MEDS: Cholecalciferol (Vitamin D3) 10 MCG Tab PO SCH (10:41)
[2019-08-26] MEDS ORDERED: Oxybutynin 5 MG Tab.ER PO SCH (12:00)
[2019-08-27] MEDS ORDERED: DULoxetine 30 MG Cap PO SCH (12:00)
== END 2019-08-26 11:15 | disposition home or self-care (01) ==
LOC: VM.ED 16:49 → VM.MS 19:19
PROVIDERS: ADMIT Nurse Practitioner; ATTEND Nurse Practitioner
DX: R07.89 Other chest pain (principal); M54.9 Dorsalgia, unspecified; N18.3 Chronic kidney disease, stage 3 (moderate); Z79.82 Long term (current) use of aspirin; Z79.899 Other long term (current) drug therapy; Z88.8 Allergy status to other drugs, medicaments and biological substances
CPT/HCPCS: 36415; 71045; 80053; 82550; 83880; 84484; 85025; 85610; 93005; 99217; 99220; 99284-GF; 99285-25; A9270-GY; G0378; J7512

== ENCOUNTER 2020-05-24 08:45 | Day surgery (SDC) | payer MEDICARE, OTHER ==
[2020-05-22 13:00] LABS: CORONAVIRUS COVID-19 NAA NEGATIVE (NEGATIVE)
[~2020-05-24 08:45] MED LIST: Lactated Ringers 1,000 ML IV SCH; Sodium Chloride 0.9% 10 ML Syringe FLUSH PRN
[2020-05-24] MEDS ORDERED: Propofol 200 MG/20 ML SDV ONE ×3 (09:35→10:26)
[2020-05-24 11:42] VITALS: BP 135/57; PULSE 68
--- NOTE | 2020-05-24 15:03 | OR ---
DATE OF SURGERY: 05/24/2020. REFERRING PROVIDER: Praveena Rosario DO PRE-OPERATIVE DIAGNOSES: 1. Screening colonoscopy. This is the patient's first colonoscopy. 2. Altered bowel habits. She alternates between constipation and diarrhea. There is no family history of colon cancer. POST-OPERATIVE DIAGNOSES: 1. Total of 12 polyps removed. a. 1 cm cecal polyp, removed using hot snare. b. 1 cm, 1 cm, 1.5 cm, and 5 mm polyps within the right colon, all removed using hot snare. c. 2 mm polyp at 35 cm, removed with cold forceps. d. 3 mm and 4 mm polyps at 30 cm, removed using cold forceps. e. 2 mm x2 at 20 cm, removed using cold forceps. f. 2 mm polyp x2 at 12 cm, removed using cold forceps. 2. Tortuous spastic colon. 3. Mild melanosis coli. PROCEDURE: Colonoscopy with polypectomy x12 (5 using hot snare and 7 using cold forceps). SURGEON: Kavon Burton M.D. ANESTHESIA: Monitored anesthesia care. BOWEL PREP: Fair, did require moderate irrigation and suctioning. Tamara is a 74-year-old female who was brought to the endoscopy suite after discussing risks and benefits of the procedure. Informed consent was obtained for conscious sedation and colonoscopy with or without biopsy and/or polypectomy. We also discussed possibility of missed lesions. Pre-procedure exam was unremarkable. IV, oxygen, and monitors were placed. The patient was placed in the left lateral decubitus position. Sedation was administered and a digital rectal exam was performed and unremarkable. She did have some external hemorrhoidal skin tags. Colonoscope was passed into the rectum and slowly advanced all the way to the cecum. The patient did have a tortuous spastic colon. Cecum was viewed and photographed. Within the cecum, there was a 1 cm cecal polyp removed using hot snare. The colonoscope was slowly withdrawn and the mucosa was closed observed in a direct circumferential manner. The ascending colon revealed total of 4 polyps ranging from 5 mm to 15 mm in size, all removed using hot snare, some with several passes of the snare. See above. The transverse colon was unremarkable. The descending colon revealed 2 mm polyp at 35 cm, removed using cold forceps. The sigmoid colon was remarkable for total of 6 small polyps, all removed using cold forceps. These ranged in size from 2 to 4 mm. Retroflexion was performed and rectal mucosa was otherwise unremarkable. Scope was removed. The patient tolerated the procedure well. The patient was monitored until that baseline status. Discharge instructions were reviewed and the patient was discharged in good condition. COMPLICATIONS: None. TOTAL TIME: 62 minutes. ESTIMATED BLOOD LOSS: About 2 mL. RECOMMENDATIONS/FOLLOW-UP: We will await results of path report to determine ideal followup interval. I will also have her hold her Plavix and aspirin for 3 days to limit any chance of bleeding from the polypectomy sites. I would like to kindly thank Praveena Rosario for this referral. DMB: 05/24/2020 11:25:51 MODL: 05/24/2020 14:09:52 /[id number]
== END 2020-05-24 12:25 | disposition home or self-care (01) ==
LOC: VM.SDS 08:45
PROVIDERS: ATTEND Family Medicine
DX: D12.0 Benign neoplasm of cecum (principal); D12.2 Benign neoplasm of ascending colon; K64.4 Residual hemorrhoidal skin tags; R60.9 Edema, unspecified; M51.36 Other intervertebral disc degeneration, lumbar region; G62.9 Polyneuropathy, unspecified; E78.5 Hyperlipidemia, unspecified; R73.9 Hyperglycemia, unspecified; I12.9 Hypertensive chronic kidney disease with stage 1 through stage 4 chronic kidney disease, or unspecified chronic kidney disease; N18.30 Chronic kidney disease, stage 3 unspecified; I25.10 Atherosclerotic heart disease of native coronary artery without angina pectoris; M96.1 Postlaminectomy syndrome, not elsewhere classified; M81.0 Age-related osteoporosis without current pathological fracture; Z01.812 Encounter for preprocedural laboratory examination; Z20.822 Contact with and (suspected) exposure to COVID-19; G47.33 Obstructive sleep apnea (adult) (pediatric); E66.9 Obesity, unspecified; Z68.37 Body mass index [BMI] 37.0-37.9, adult; Z88.8 Allergy status to other drugs, medicaments and biological substances; Z79.82 Long term (current) use of aspirin; Z79.899 Other long term (current) drug therapy; Z98.890 Other specified postprocedural states
CPT/HCPCS: 00812; J2704; U0002

== ENCOUNTER 2020-09-02 18:29 | Observation (INO) | payer MEDICARE, OTHER ==
--- NOTE | 2020-09-02 19:08 | EDM.PDOC ---
ED HPI GENERAL MEDICAL PROBLEM - General Chief Complaint: General Stated Complaint: FALL, confusion Time Seen by Provider: 09/02/20 19:00 Source of Information: Reports: Patient, EMS, Family History Limitations: Reports: Altered Mental Status - History of Present Illness INITIAL COMMENTS - FREE TEXT/NARRATIVE: Patient is brought in by EMS for altered mental state. She has chronic back pain and lives alone. She has a life alert. today she did not show up for yazdanism and family went to check on her. They found her half way into her scooter at the end of bed. She appears to possibly have struck the bridge of her nose as it was red and the phone was on the floor. She did not push her life alert. She appeared slightly confused at the time and they put her back to bed. They gave her the noon medications. Later they checked on her and found her slid out of bed but without injury. EMS was called for lift assist, but she was back in bed . FAmily wanted her brought in for increased confusion. She is on a fentanyl patch, changed yesterday per patient and states she took off the old one and flushed it. Took a hydrocodone at 5 pm from family. HAs not ate or drank today. STates has not urinated and not sure of ability to stand. Has chronic back problems on narcotics. Family states her baseline back pain is typical, but her lethargy is not. Patient is rousable to sternal rub and voice to answer questions. Orientated to place but not time. Denies new injury, complains of back pain that is chronic and back muscle spasms blood glucose 86 and bladder scan is 26. Onset: Unknown/Unsure (last known well possibly yesterday) Associated Symptoms: Reports: Weakness - Related Data Allergies Allergy/AdvReac Type Severity Reaction Status Date / Time atorvastatin calcium AdvReac Muscle Verified 09/02/20 18:43 [From Lipitor] Aches pregabalin [From Lyrica] AdvReac Swelling Verified 09/02/20 18:43 Home Meds: Home Meds Aspirin [Halfprin] 81 mg PO DAILY 09/11/13 [History] Calcium Carb, Citrate/Vit D3 [Calcium + D3 ER Tablet] 1 each PO BID 09/11/13 [History] DULoxetine [Cymbalta] 90 mg PO DAILY 09/11/13 [History] Multivitamin [Multi-Vitamin Daily] 1 each PO DAILY 09/11/13 [History] Oxybutynin Chloride [Ditropan Xl] 5 mg PO WITHLUNCH 09/11/13 [History] Vitamin E 400 unit PO DAILY 09/11/13 [History] fentaNYL [Fentanyl] 75 mcg TD Q48H 05/29/14 [History] Cholecalciferol (Vitamin D3) [Vitamin D3] 400 units PO BID 01/14/15 [History] Furosemide 40 mg PO DAILY PRN 01/14/15 [History] Hydrocodone/Acetaminophen [Hydrocodone-Acetamin 10-325 mg] 1 tab PO Q6H PRN 01/14/15 [History] Hydroxychloroquine Sulfate [Plaquenil] 200 mg PO BID 01/14/15 [History] predniSONE [Shakila] 3 mg PO DAILY 01/14/15 [History] Gabapentin [Neurontin] 100 mg PO DAILY@1200 cap 01/25/15 [Rx] Acetaminophen 1 - 2 tab PO Q3H PRN 12/10/16 [History] Baclofen 1.5 tab PO BEDTIME 12/10/16 [History] Baclofen 10 mg PO ,14 12/10/16 [History] Nystatin 1 each TOP BID PRN 12/10/16 [History] Clopidogrel [Plavix] 75 mg PO DAILY 08/21/19 [History] Denosumab [Prolia] 60 mg SQ ASDIRECTED 08/21/19 [History] Gabapentin [Neurontin] 200 mg PO BID 08/26/19 [History] Metoprolol Succinate [Toprol XL] 50 mg PO DAILY 10/03/19 [History] Past Medical History Cardiovascular History: Reports: CAD, High Cholesterol, Hypertension, Other (See Below) Other Cardiovascular History: severe aortic stenosis Respiratory History: Reports: Sleep Apnea Gastrointestinal History: Reports: Bowel Obstruction, Chronic Constipation Genitourinary History: Reports: Renal Disease Other Genitourinary History: stage 3 kidney disease Other SANDWICH HAND History: 2 children Musculoskeletal History: Reports: Arthritis, Back Pain, Chronic, Other (See Below) Other Musculoskeletal History: peripheral neuropathy Endocrine/Metabolic History: Reports: Other (See Below) Other Endocrine/Metabolic History: impaired fasting glucose - Past Surgical History HEENT Surgical History: Reports: Adenoidectomy, Tonsillectomy, Other (See Below) Other HEENT Surgeries/Procedures: Tonsilectomy as a child Cardiovascular Surgical History: Reports: Other (See Below) Other Cardiovascular Surgeries/Procedures: s/p TAVR bioprosthetic, cardiac cath, Female Surgical History: Reports: D&C, Hysterectomy Other Musculoskeletal Surgeries/Procedures:: back/neck surgeries, nerve stimulator Social & Family History - Family History Cardiac: Reports: CAD - Caffeine Use Caffeine Use: Reports: Soda Caffeine Use Comment: 3 diet cokes per week. ED ROS GENERAL - Review of Systems Review Of Systems: See Below Constitutional: Reports: Weakness, Fatigue, Decreased Appetite, Other (difficulty ambulating) HEENT: Reports: Nose Pain (bridge of nose due to recent fall) Respiratory: Reports: No Symptoms. Denies: Shortness of Breath, Wheezing Cardiovascular: Reports: No Symptoms. Denies: Chest Pain, Blood Pressure Problem, Dyspnea on Exertion Endocrine: Reports: No Symptoms GI/Abdominal: Reports: No Symptoms. Denies: Abdominal Pain, Diarrhea, Nausea : Reports: Frequency, Urgency Musculoskeletal: Reports: Back Pain (chronically, nothing new) Skin: Reports: No Symptoms Neurological: Reports: Confusion, Difficulty Walking ED EXAM, GENERAL - Physical Exam Exam: See Below Exam Limited By: Altered Mental Status General Appearance: Lethargic, Mild Distress Eye Exam: Bilateral Eye: EOMI, Normal Inspection, PERRL (pupils are constricted and sluggish) Ears: Normal External Exam Ear Exam: Bilateral Ear: TM normal Nose: Normal Inspection, Normal Mucosa Throat/Mouth: Normal Lips, Normal Teeth, Other (dry mucous membranes) Neck: Normal Inspection Respiratory/Chest: No Respiratory Distress, Lungs Clear, Normal Breath Sounds, No Accessory Muscle Use Cardiovascular: Normal Peripheral Pulses, Regular Rate, Rhythm, No Edema, No Murmur GI/Abdominal: Normal Bowel Sounds, Soft, Non-Tender Extremities: Normal Inspection Neurological: Slow to Respond, Other (responds appropriately to questions except time orientation. moves all extremities, trying to climb out of bed. denies new pain, need to sternal rub her at times for answers, no focal neuro deficit) #1 Interpretation EKG Date: 09/02/20 Time: 20:07 Rhythm: NSR Woodson: Normal P-Wave: Present QRS: Normal ST-T: Normal QT: Normal Comparison: No Change Course - Vital Signs Last Recorded V/S: Last Vital Signs Temp 36.7 C 06/27/21 18:29 Pulse 66 09/02/20 18:29 Resp 18 09/02/20 18:29 BP 138/64 09/02/20 18:29 Pulse Ox 96 09/02/20 18:29 - Orders/Labs/Meds Orders: Active Orders 24 hr Category Date Time Status Admission Status [Patient Status] [ADT] Routine ADT 09/02/20 22:00 Ordered Blood Glucose Check, Bedside [] ONETIME Care 09/02/20 19:00 Active EKG 12 Lead [EKG Documentation Completion] [] STAT Care 09/02/20 19:01 Active Insert Urinary Catheter [OM.PC] Q24H Care 09/02/20 19:00 Ordered Urinary Catheter Assessment [] ASDIRECTED Care 09/02/20 19:01 Active Sodium Chloride 0.9% [Saline Flush] Med 09/02/20 19:10 Active 10 ml FLUSH ASDIRECTED PRN Peripheral IV Insertion Adult [OM.PC] Routine Oth 09/02/20 19:10 Ordered Medication Orders Sodium Chloride (Sodium Chloride 0.9% 10 Ml Syringe) 10 ml FLUSH ASDIRECTED PRN PRN Reason: Keep Vein Open Labs: Laboratory Tests 09/02/20 09/02/20 09/02/20 Range/Units 19:07 20:02 20:02 WBC 9.0 (4.0-10.0) x10^3/uL RBC 3.76 L (4.00-5.50) x10^6/uL Hgb 11.5 L (12.0-16.0) g/dL Hct 35.4 (33.0-47.0) % MCV 94.1 H (78.0-93.0) fL MCH 30.6 (26.0-32.0) pg MCHC 32.5 (32.0-36.0) g/dL RDW Coeff of Isaura 13.9 (10.0-15.0) % Plt Count 130 (130-400) x10^3/uL Neut % (Auto) 69.6 (50.0-80.0) % Lymph % (Auto) 19.6 L (25.0-50.0) % Hill % (Auto) 7.9 (2.0-11.0) % Eos % (Auto) 2.7 (0.0-4.0) % Baso % (Auto) 0.2 (0.2-1.2) % Sodium 140 (136-145) mmol/L Potassium 4.3 (3.5-5.1) mmol/L Chloride 104 (98-107) mmol/L Carbon Dioxide 26 (21-32) mmol/L Anion Gap 14.3 (5-15) mmol/L BUN 36 H (7-18) mg/dL Creatinine 1.9 H (0.55-1.02) mg/dL Est Cr Clr Drug Dosing TNP Estimated GFR (MDRD) 26 Glucose 94 (70-99) mg/dL POC Glucose 84 (70-99) mg/dL Lactic Acid (0.4-2.0) mmol/L Calcium 9.1 (8.5-10.1) mg/dL Corrected Calcium 9.2 (8.5-10.1) mg/dL Total Bilirubin 0.4 (0.2-1.0) mg/dL AST 40 H (15-37) U/L ALT 39 (14-59) U/L Alkaline Phosphatase 75 (46-116) U/L Creatine Kinase (26-192) U/L Troponin I High Sens 13 (<=51) ng/L Total Protein 8.1 (6.4-8.2) g/dL Albumin 3.9 (3.4-5.0) g/dL Globulin 4.2 Albumin/Globulin Ratio 0.93 Urine Color (YELLOW) Urine Appearance (CLEAR) Urine pH (5.0-8.0) Ur Specific [place] Urine Protein (NEGATIVE) mg/dL Urine Glucose (UA) (NEGATIVE) mg/dL Urine Ketones (NEGATIVE) mg/dL Urine Occult Blood (NEGATIVE) Urine Nitrite (NEGATIVE) Urine Bilirubin (NEGATIVE) Urine Urobilinogen (0.2) EU/dL Ur Leukocyte Esterase (NEGATIVE) Urine RBC (NOT SEEN) /HPF Urine WBC (NOT SEEN) /HPF Ur Squamous Epith Cells (NOT SEEN) /HPF Amorphous Sediment Urine Bacteria (NOT SEEN) /HPF Urine Mucus (NOT SEEN) /LPF 09/02/20 09/02/20 09/02/20 Range/Units 20:02 20:02 20:45 WBC (4.0-10.0) x10^3/uL RBC (4.00-5.50) x10^6/uL Hgb (12.0-16.0) g/dL Hct (33.0-47.0) % MCV (78.0-93.0) fL MCH (26.0-32.0) pg MCHC (32.0-36.0) g/dL RDW Coeff of Isaura (10.0-15.0) % Plt Count (130-400) x10^3/uL Neut % (Auto) (50.0-80.0) % Lymph % (Auto) (25.0-50.0) % Hill % (Auto) (2.0-11.0) % Eos % (Auto) (0.0-4.0) % Baso % (Auto) (0.2-1.2) % Sodium (136-145) mmol/L Potassium (3.5-5.1) mmol/L Chloride (98-107) mmol/L Carbon Dioxide (21-32) mmol/L Anion Gap (5-15) mmol/L BUN (7-18) mg/dL Creatinine (0.55-1.02) mg/dL Est Cr Clr Drug Dosing Estimated GFR (MDRD) Glucose (70-99) mg/dL POC Glucose (70-99) mg/dL Lactic Acid 1.6 (0.4-2.0) mmol/L Calcium (8.5-10.1) mg/dL Corrected Calcium (8.5-10.1) mg/dL Total Bilirubin (0.2-1.0) mg/dL AST (15-37) U/L ALT (14-59) U/L Alkaline Phosphatase (46-116) U/L Creatine Kinase 499 H* (26-192) U/L Troponin I High Sens (<=51) ng/L Total Protein (6.4-8.2) g/dL Albumin (3.4-5.0) g/dL Globulin Albumin/Globulin Ratio Urine Color Yellow (YELLOW) Urine Appearance Clear (CLEAR) Urine pH 5.0 (5.0-8.0) Ur Specific [place] >=1.030 Urine Protein 100 H (NEGATIVE) mg/dL Urine Glucose (UA) Negative (NEGATIVE) mg/dL Urine Ketones Negative (NEGATIVE) mg/dL Urine Occult Blood Moderate H (NEGATIVE) Urine Nitrite Negative (NEGATIVE) Urine Bilirubin Small H (NEGATIVE) Urine Urobilinogen 0.2 (0.2) EU/dL Ur Leukocyte Esterase Negative (NEGATIVE) Urine RBC 10-20 H (NOT SEEN) /HPF Urine WBC 0-5 (NOT SEEN) /HPF Ur Squamous Epith Cells Not seen (NOT SEEN) /HPF Amorphous Sediment Moderate Urine Bacteria Few H (NOT SEEN) /HPF Urine Mucus Few H (NOT SEEN) /LPF Meds: Medications Generic Name Dose Route Start Last Admin Trade Name Freq PRN Reason Stop Dose Admin Sodium Chloride 10 ml 09/02/20 19:10 Sodium Chloride 0.9% 10 Ml Syringe FLUSH ASDIRECTED PRN Keep Vein Open Discontinued Medications Generic Name Dose Route Start Last Admin Trade Name Freq PRN Reason Stop Dose Admin Ceftriaxone Sodium 1 gm 09/02/20 21:21 Ceftriaxone 1 Gm Vial IVPUSH 09/02/20 21:22 STAT ONE Sodium Chloride 1,000 mls @ 999 mls/hr 09/02/20 19:10 Normal Saline IV 09/02/20 20:10 ONETIME ONE - Radiology Interpretation Free Text/Narrative:: ct head without any acute intracranial process, chest x-ray without acute process, interpreted by radiology - Re-Assessments/Exams Free Text/Narrative Re-Assessment/Exam: 09/02/20 19:23 Patient appears to have long standing history of back problems and is maintained on a large amount of narcotics. Patient does appear to be lethargic but rousable. will get a head CT due to questionable trauma and AMS. Is clinically dry and no urine in the bladder, will place an IV and give bolus. Need labs and chest x-ray. 09/02/20 20:55 per family, creatinine is usually 1.2-1.4. appears slightly dry, continues to sleep. IV hydration ongoing, with caution due to cardiac conditions. awaiting urine. 09/02/20 22:05 Daughter that is a nurse is here. Discussed mild UTI, continued lethary and concern for safety at home. They will look into medication management. Concern that she has been over medicating herself and this is the second time this month. Desire observation to see if she clears by morning. Has received on bag of IV fluids. has significant CHF issues. Has been taking more lasix lately. Will repeat labs in AM. will discuss further plans tomorrow if not clearing. Departure - Departure Time of Disposition: 22:08 Disposition: Refer to Observation Clinical Impression: Delirium due to another medical condition, BACILIO (acute kidney injury), UTI (urinary tract infection) - Discharge Information *PRESCRIPTION DRUG MONITORING PROGRAM REVIEWED*: Not Applicable *COPY OF PRESCRIPTION DRUG MONITORING REPORT IN PATIENT IVETT: Not Applicable Referrals: Praveena Rosario DO [Primary Care Provider] - Forms: ED Department Discharge Additional Instructions: please use this document as an admission H & P Sepsis Event Note (ED) - Evaluation Sepsis Screening Result: No Definite Risk - Focused Exam Vital Signs: Vital Signs Temp Pulse Resp BP Pulse Ox 09/02/20 18:29 36.7 C 66 18 138/64 96 - My Orders Last 24 Hours: My Active Orders 09/02/20 19:00 Blood Glucose Check, Bedside [RC] ONETIME Insert Urinary Catheter [OM.PC] Q24H 09/02/20 19:01 EKG 12 Lead [EKG Documentation Completion] [RC] STAT Urinary Catheter Assessment [RC] ASDIRECTED 09/02/20 19:10 Sodium Chloride 0.9% [Saline Flush] 10 ml FLUSH ASDIRECTED PRN Peripheral IV Insertion Adult [OM.PC] Routine 09/02/20 22:00 Admission Status [Patient Status] [ADT] Routine - Assessment/Plan Last 24 Hours: My Active Orders 09/02/20 19:00 Blood Glucose Check, Bedside [RC] ONETIME Insert Urinary Catheter [OM.PC] Q24H 09/02/20 19:01 EKG 12 Lead [EKG Documentation Completion] [RC] STAT Urinary Catheter Assessment [RC] ASDIRECTED 09/02/20 19:10 Sodium Chloride 0.9% [Saline Flush] 10 ml FLUSH ASDIRECTED PRN Peripheral IV Insertion Adult [OM.PC] Routine 09/02/20 22:00 Admission Status [Patient Status] [ADT] Routine
[2020-09-02] MEDS ORDERED: Sodium Chloride 0.9% 1,000 ML IV ONE (19:10)
[2020-09-02] MEDS ORDERED: Sodium Chloride 0.9% 10 ML Syringe FLUSH PRN (19:10)
--- NOTE | 2020-09-02 20:05 | CR ---
[id number] RAD/RAD Chest Portable EXAM: PORTABLE CHEST RADIOGRAPH. INDICATION: CHANGE IN MENTAL STATUS COMPARISON: CORRELATION IS MADE WITH AUGUST 25, 2019 FINDINGS: The lungs are clear The cardiac silhouette is stable There is a prosthetic aortic valve There are surgical changes of the lumbar spine There is an old left clavicular fracture There are surgical changes of the cervical spine IMPRESSION: NO ACUTE PROCESS. Remi Acevedo MD 09/02/202003 Thank you for allowing us to participate in the care of your patient.
--- NOTE | 2020-09-02 20:05 | CT ---
[id number] CT/CT Head WO IV EXAM: CT Head WO IV CLINICAL DATA: CHANGE IN MENTAL STATUS COMPARISON: CORRELATION IS MADE WITH AUGUST 21, 2019 FINDINGS: There is no mass or mass effect. There is no hemorrhage or hydrocephalus. There are no extra-axial fluid collections. There are no sites of abnormal attenuation. IMPRESSION: NO PLAIN CT EVIDENCE OF ACUTE INTRACRANIAL PROCESS. Remi Acevedo MD 09/02/202003 Thank you for allowing us to participate in the care of your patient.
[2020-09-02 20:40] LABS: CHLORIDE,CL 104 mmol/L (98-107); SODIUM,NA 140 mmol/L (136-145)
[2020-09-02 20:46] LABS: ANION GAP 14.3 mmol/L (5-15)
[2020-09-02] MEDS ORDERED: cefTRIAXone 1 GM Vial IVPUSH ONE (21:21)
[2020-09-03 02:13] VITALS: PULSE 66
[2020-09-03 06:20] VITALS: BP 127/56
--- NOTE | 2020-09-03 07:15 | PCM.DCSUM1 ---
Discharge Summary - Hospital Course Free Text/Narrative:: Patient was admitted for altered mental status presumed to be medication induced HPI Initial Comments: patient presented with lethargy and no cause was found, was unsafe to go home alone. admitted for OBS Diagnosis: Stroke: No Modified Con Scale: Mod.Disablility Requiring Some Help,Able to Walk Without Assistance Modified Harper Scale Score: 3 - Discharge Data Discharge Date: 09/03/20 Discharge Disposition: Home, Self-Care 01 Condition: Stable - Referral to Home Health Primary Care Physician: Praveena Rosario, DO - Patient Summary/Data Recommended Follow-up Testing/Procedures: follow up with PCP for medication interactions, question medication misuse Hospital Course: admitted for lethargy, UTI, cleared overnight. doing well, back to baseline. Family is willing to take home - Patient Instructions Diet: Heart Healthy Diet Activity: As Tolerated - Discharge Plan *PRESCRIPTION DRUG MONITORING PROGRAM REVIEWED*: Not Applicable *COPY OF PRESCRIPTION DRUG MONITORING REPORT IN PATIENT IVETT: Not Applicable Home Medications: Home Meds Aspirin [Halfprin] 81 mg PO DAILY 09/11/13 [History] Calcium Carb, Citrate/Vit D3 [Calcium + D3 ER Tablet] 1 each PO BID 09/11/13 [History] DULoxetine [Cymbalta] 90 mg PO DAILY 09/11/13 [History] Multivitamin [Multi-Vitamin Daily] 1 each PO DAILY 09/11/13 [History] Vitamin E 400 unit PO DAILY 09/11/13 [History] Cholecalciferol (Vitamin D3) [Vitamin D3] 400 units PO BID 01/14/15 [History] Furosemide 60 mg PO DAILY PRN 01/14/15 [History] Hydrocodone/Acetaminophen [Hydrocodone-Acetamin 10-325 mg] 1 tab PO Q6H PRN 01/14/15 [History] Gabapentin [Neurontin] 100 mg PO DAILY@1200 cap 01/25/15 [Rx] Acetaminophen 1 - 2 tab PO Q3H PRN 12/10/16 [History] Baclofen 1.5 tab PO BEDTIME 12/10/16 [History] Baclofen 10 mg PO ,14 12/10/16 [History] Nystatin 1 each TOP BID PRN 12/10/16 [History] Denosumab [Prolia] 60 mg SQ ASDIRECTED 08/21/19 [History] Gabapentin [Neurontin] 200 mg PO BID 08/26/19 [History] Metoprolol Succinate [Toprol XL] 50 mg PO DAILY 10/03/19 [History] Clopidogrel [Plavix] 75 mg PO DAILY tablet 09/03/20 [Rx] Hydroxychloroquine [Plaquenil] 200 mg PO BID tablet 09/03/20 [Rx] Oxybutynin [Oxybutynin ER] 5 mg PO WITHLUNCH tab.er 09/03/20 [Rx] Simvastatin 20 mg PO DAILY 09/03/20 [History] cephALEXin [Keflex] 500 mg PO Q8H 3 Days #15 cap 09/03/20 [Rx] fentaNYL [Duragesic] 75 mcg TRDERM Q48H patch 09/03/20 [Rx] predniSONE [Shakila] 3 mg PO DAILY 09/03/20 [Rx] Oxygen Therapy Mode: Room Air Forms: ED Department Discharge Referrals: Praveena Rosario DO [Primary Care Provider] - - Discharge Summary/Plan Comment DC Time >30 min.: No Discharge Summary/Plan Comment: check with your physician as to medication interactions that could be causing altered mental status. Take antibiotics until gone. you will be contacted as to needs for changes in antibiotics - Patient Data Vitals - Most Recent: Last Vital Signs Temp 36.7 C 09/03/20 06:00 Pulse 66 09/03/20 06:00 Resp 15 09/03/20 06:00 BP 127/56 L 09/03/20 06:00 Pulse Ox 97 09/03/20 06:00 Weight - Most Recent: 95.254 kg I&O - Last 24 hours: Intake & Output 09/02/20 09/03/20 09/03/20 22:59 06:59 14:59 Intake Total 1000 200 Output Total 400 Balance 1000 -200 Lab Results - Last 24 hrs: Laboratory Results - last 24 hr 09/02/20 09/02/20 09/02/20 Range/Units 19:07 20:02 20:02 WBC 9.0 (4.0-10.0) x10^3/uL RBC 3.76 L (4.00-5.50) x10^6/uL Hgb 11.5 L (12.0-16.0) g/dL Hct 35.4 (33.0-47.0) % MCV 94.1 H (78.0-93.0) fL MCH 30.6 (26.0-32.0) pg MCHC 32.5 (32.0-36.0) g/dL RDW Coeff of Isaura 13.9 (10.0-15.0) % Plt Count 130 (130-400) x10^3/uL Neut % (Auto) 69.6 (50.0-80.0) % Lymph % (Auto) 19.6 L (25.0-50.0) % [place] % (Auto) 7.9 (2.0-11.0) % Eos % (Auto) 2.7 (0.0-4.0) % Baso % (Auto) 0.2 (0.2-1.2) % Sodium 140 (136-145) mmol/L Potassium 4.3 (3.5-5.1) mmol/L Chloride 104 (98-107) mmol/L Carbon Dioxide 26 (21-32) mmol/L Anion Gap 14.3 (5-15) mmol/L BUN 36 H (7-18) mg/dL Creatinine 1.9 H (0.55-1.02) mg/dL Est Cr Clr Drug Dosing TNP Estimated GFR (MDRD) 26 Glucose 94 (70-99) mg/dL POC Glucose 84 (70-99) mg/dL Lactic Acid (0.4-2.0) mmol/L Calcium 9.1 (8.5-10.1) mg/dL Corrected Calcium 9.2 (8.5-10.1) mg/dL Total Bilirubin 0.4 (0.2-1.0) mg/dL AST 40 H (15-37) U/L ALT 39 (14-59) U/L Alkaline Phosphatase 75 (46-116) U/L Creatine Kinase (26-192) U/L Troponin I High Sens 13 (<=51) ng/L Total Protein 8.1 (6.4-8.2) g/dL Albumin 3.9 (3.4-5.0) g/dL Globulin 4.2 Albumin/Globulin Ratio 0.93 Urine Color (YELLOW) Urine Appearance (CLEAR) Urine pH (5.0-8.0) Ur Specific [place] Urine Protein (NEGATIVE) mg/dL Urine Glucose (UA) (NEGATIVE) mg/dL Urine Ketones (NEGATIVE) mg/dL Urine Occult Blood (NEGATIVE) Urine Nitrite (NEGATIVE) Urine Bilirubin (NEGATIVE) Urine Urobilinogen (0.2) EU/dL Ur Leukocyte Esterase (NEGATIVE) Urine RBC (NOT SEEN) /HPF Urine WBC (NOT SEEN) /HPF Ur Squamous Epith Cells (NOT SEEN) /HPF Amorphous Sediment Urine Bacteria (NOT SEEN) /HPF Urine Mucus (NOT SEEN) /LPF SARS CoV-2 RNA Rapid KSENIA (NEGATIVE) 09/02/20 09/02/20 09/02/20 Range/Units 20:02 20:02 20:45 WBC (4.0-10.0) x10^3/uL RBC (4.00-5.50) x10^6/uL Hgb (12.0-16.0) g/dL Hct (33.0-47.0) % MCV (78.0-93.0) fL MCH (26.0-32.0) pg MCHC (32.0-36.0) g/dL RDW Coeff of Isaura (10.0-15.0) % Plt Count (130-400) x10^3/uL Neut % (Auto) (50.0-80.0) % Lymph % (Auto) (25.0-50.0) % [place] % (Auto) (2.0-11.0) % Eos % (Auto) (0.0-4.0) % Baso % (Auto) (0.2-1.2) % Sodium (136-145) mmol/L Potassium (3.5-5.1) mmol/L Chloride (98-107) mmol/L Carbon Dioxide (21-32) mmol/L Anion Gap (5-15) mmol/L BUN (7-18) mg/dL Creatinine (0.55-1.02) mg/dL Est Cr Clr Drug Dosing Estimated GFR (MDRD) Glucose (70-99) mg/dL POC Glucose (70-99) mg/dL Lactic Acid 1.6 (0.4-2.0) mmol/L Calcium (8.5-10.1) mg/dL Corrected Calcium (8.5-10.1) mg/dL Total Bilirubin (0.2-1.0) mg/dL AST (15-37) U/L ALT (14-59) U/L Alkaline Phosphatase (46-116) U/L Creatine Kinase 499 H* (26-192) U/L Troponin I High Sens (<=51) ng/L Total Protein (6.4-8.2) g/dL Albumin (3.4-5.0) g/dL Globulin Albumin/Globulin Ratio Urine Color Yellow (YELLOW) Urine Appearance Clear (CLEAR) Urine pH 5.0 (5.0-8.0) Ur Specific [place] >=1.030 Urine Protein 100 H (NEGATIVE) mg/dL Urine Glucose (UA) Negative (NEGATIVE) mg/dL Urine Ketones Negative (NEGATIVE) mg/dL Urine Occult Blood Moderate H (NEGATIVE) Urine Nitrite Negative (NEGATIVE) Urine Bilirubin Small H (NEGATIVE) Urine Urobilinogen 0.2 (0.2) EU/dL Ur Leukocyte Esterase Negative (NEGATIVE) Urine RBC 10-20 H (NOT SEEN) /HPF Urine WBC 0-5 (NOT SEEN) /HPF Ur Squamous Epith Cells Not seen (NOT SEEN) /HPF Amorphous Sediment Moderate Urine Bacteria Few H (NOT SEEN) /HPF Urine Mucus Few H (NOT SEEN) /LPF SARS CoV-2 RNA Rapid KSENIA (NEGATIVE) 09/02/20 09/03/20 Range/Units 22:53 06:57 WBC (4.0-10.0) x10^3/uL RBC (4.00-5.50) x10^6/uL Hgb (12.0-16.0) g/dL Hct (33.0-47.0) % MCV (78.0-93.0) fL MCH (26.0-32.0) pg MCHC (32.0-36.0) g/dL RDW Coeff of Isaura (10.0-15.0) % Plt Count (130-400) x10^3/uL Neut % (Auto) (50.0-80.0) % Lymph % (Auto) (25.0-50.0) % [place] % (Auto) (2.0-11.0) % Eos % (Auto) (0.0-4.0) % Baso % (Auto) (0.2-1.2) % Sodium (136-145) mmol/L Potassium (3.5-5.1) mmol/L Chloride (98-107) mmol/L Carbon Dioxide (21-32) mmol/L Anion Gap (5-15) mmol/L BUN (7-18) mg/dL Creatinine (0.55-1.02) mg/dL Est Cr Clr Drug Dosing Estimated GFR (MDRD) Glucose (70-99) mg/dL POC Glucose 86 (70-99) mg/dL Lactic Acid (0.4-2.0) mmol/L Calcium (8.5-10.1) mg/dL Corrected Calcium (8.5-10.1) mg/dL Total Bilirubin (0.2-1.0) mg/dL AST (15-37) U/L ALT (14-59) U/L Alkaline Phosphatase (46-116) U/L Creatine Kinase (26-192) U/L Troponin I High Sens (<=51) ng/L Total Protein (6.4-8.2) g/dL Albumin (3.4-5.0) g/dL Globulin Albumin/Globulin Ratio Urine Color (YELLOW) Urine Appearance (CLEAR) Urine pH (5.0-8.0) Ur Specific [place] Urine Protein (NEGATIVE) mg/dL Urine Glucose (UA) (NEGATIVE) mg/dL Urine Ketones (NEGATIVE) mg/dL Urine Occult Blood (NEGATIVE) Urine Nitrite (NEGATIVE) Urine Bilirubin (NEGATIVE) Urine Urobilinogen (0.2) EU/dL Ur Leukocyte Esterase (NEGATIVE) Urine RBC (NOT SEEN) /HPF Urine WBC (NOT SEEN) /HPF Ur Squamous Epith Cells (NOT SEEN) /HPF Amorphous Sediment Urine Bacteria (NOT SEEN) /HPF Urine Mucus (NOT SEEN) /LPF SARS CoV-2 RNA Rapid KSENIA Negative (NEGATIVE) Med Orders - Current: Current Medications Clopidogrel Bisulfate (Clopidogrel 75 Mg Tab) [address] [facility] Fentanyl (Fentanyl 75 Mcg/Hr Transdermal Patch) [address] [facility] Hydroxychloroquine Sulfate (Hydroxychloroquine 200 Mg Tab) [address] [facility] Metoprolol Succinate (Metoprolol Succinate 50 Mg Tab.Er) [address] [facility] Non-Formulary Medication (Prednisone [Shakila]) 3 mg PO DAILY [facility] Oxybutynin Chloride (Oxybutynin 5 Mg Tab.Er) [address] [facility] Sodium Chloride (Sodium Chloride 0.9% 10 Ml Syringe) 10 ml FLUSH ASDIRECTED PRN PRN Reason: Keep Vein Open Discontinued Medications Ceftriaxone Sodium (Ceftriaxone 1 Gm Vial) 1 gm IVPUSH STAT ONE Stop: 06/27/21 21:22 Last Admin: 09/02/20 22:35 Dose: 1 gm Documented by: Sodium Chloride (Normal Saline) 1,000 mls @ 999 mls/hr IV ONETIME ONE Stop: 09/02/20 20:10 Last Admin: 09/02/20 20:05 Dose: 999 mls/hr Documented by:
[2020-09-03] MEDS ORDERED: Hydroxychloroquine 200 MG Tab PO SCH (08:00)
[2020-09-03] MEDS ORDERED: Metoprolol Succinate 50 MG Tab.ER PO SCH (08:00)
[2020-09-03] MEDS ORDERED: fentaNYL 75 MCG/HR Transdermal Patch TRDERM SCH (08:00)
[2020-09-03] MEDS ORDERED: Clopidogrel 75 MG Tab PO SCH (08:00)
[2020-09-03] MEDS ORDERED: predniSONE 1 MG Tab PO SCH (08:30)
[2020-09-03 09:37] LABS: CHLORIDE,CL 106 mmol/L (98-107); SODIUM,NA 142 mmol/L (136-145)
[2020-09-03 10:00] LABS: ANION GAP 9.3 mmol/L (5-15)
[2020-09-03] MEDS ORDERED: Oxybutynin 5 MG Tab.ER PO SCH (12:00)
== END 2020-09-03 12:40 | disposition home or self-care (01) ==
LOC: VM.ED 18:29 → VM.MS 22:00
PROVIDERS: ADMIT Physician Assistant; ATTEND Physician Assistant
DX: R41.82 Altered mental status, unspecified (principal); N17.9 Acute kidney failure, unspecified; N39.0 Urinary tract infection, site not specified; I12.9 Hypertensive chronic kidney disease with stage 1 through stage 4 chronic kidney disease, or unspecified chronic kidney disease; N18.30 Chronic kidney disease, stage 3 unspecified; M54.5 Low back pain; G89.29 Other chronic pain; E78.00 Pure hypercholesterolemia, unspecified; I25.10 Atherosclerotic heart disease of native coronary artery without angina pectoris; Z20.822 Contact with and (suspected) exposure to COVID-19; Z79.82 Long term (current) use of aspirin; Z79.899 Other long term (current) drug therapy; W19.XXXA Unspecified fall, initial encounter
CPT/HCPCS: 36415; 70450; 71045; 80048; 80053; 81001; 82550; 82947; 83605; 84484; 85025; 93005; 93010; 96374; 99217; 99220; 99285-25; A9270-GY; G0378; J0696; J7030; J7512; U0002